=== PATIENT | male | born 1985 | race Caucasian/White ===

== ENCOUNTER 2018-08-09 21:07 | Emergency (ER) | payer BC, OTHER ==
[2018-08-09] MEDS ORDERED: METOCLOPRAMIDE 10 MG/2mL INJ ONE (22:02)
[2018-08-09] MEDS ORDERED: DIPHENHYDRAMINE 50 MG/ML VIAL ONE (22:02)
[2018-08-09] MEDS ORDERED: DEXAMETHASONE 10 MG/ML VIAL ONE (22:02)
[2018-08-09] MEDS ORDERED: ACETAMINOPHEN 500 MG TAB ONE (22:02)
[2018-08-09] MEDS ORDERED: NA CHLORIDE 0.9% 1,000 ML ONE (22:02)
[2018-08-09 22:09] LABS: Absolute Lymphocytes (CBC) 2.4 K/uL (0.7-4.9); Basophils % 0.6 % (0-1.3); Eosinophils % 2.1 % (0-4.4); Hematocrit 46.2 % (39.6-49.0); Lymphocytes % 34.3 % (15.3-44.8); MPV 7.9 fL (7.6-11.3); Monocytes % 8.2 % (3.3-12.3); RBC Red Blood Cell Count 5.22 M/uL (4.33-5.43)
[2018-08-09 22:10] LABS: Protime INR 0.88
[2018-08-09 22:17] LABS: Barbiturates NEGATIVE (NEGATIVE); Benzodiazepines NEGATIVE (NEGATIVE); Cocaine NEGATIVE (NEGATIVE); METHAMPHETAM NEGATIVE (NEGATIVE); Methadone NEGATIVE (NEGATIVE); Opiates NEGATIVE (NEGATIVE); Phencyclidine NEGATIVE (NEGATIVE); THC Cannibis NEGATIVE (NEGATIVE)
[2018-08-09 22:52] LABS: ALT/SGPT 49 U/L (12-78); AST/SGOT 23 U/L (15-37); Alkaline Phosphatase 63 U/L (45-117); BUN Blood Urea Nitrogen 16 mg/dL (7-18); Bicarbonate 29 mmol/L (21-32); Bilirubin Direct < 0.1 mg/dL (0-0.2); Bilirubin Total 0.3 mg/dL (0.2-1.0); Glucose Level 112 mg/dL (74-106); Potassium 4.4 mmol/L (3.5-5.1); Protein, Total 7.6 g/dL (6.4-8.2); Sodium Level 144 mmol/L (136-145)
--- NOTE | 2018-08-10 00:57 | EDPHYS ---
Physician Documentation [facility] [place] Name: Hussain Zee Age: 32 yrs Sex: Male : 1985 Arrival Date: 08/09/2018 Time: 21:10 Bed 8 Private MD: ED Physician Clinton Ewing HPI: 08/09 21:58 This 32 yrs old Male presents to ER via Ambulatory with complaints of wa Dizziness, Eye Pain, Headache. 21:58 The patient presents with dizziness, feeling off balance, c/o generalized JONAS and R eye wa pain. Onset: The symptoms/episode began/occurred today. Context: occurred at home, occurred while the patient was at rest, gradual onset. . just prior to the episode the patient experienced no apparent symptoms. Modifying factors: The symptoms are alleviated by nothing, the symptoms are aggravated by nothing. Associated signs and symptoms: Pertinent positives: headache, R eye pain. dizziness, Pertinent negatives: abdominal pain, ataxia, blurred vision, confusion, focal weakness, palpitations, shortness of breath, syncope, tingling, vomiting. Severity of symptoms: At their worst the symptoms were severe in the emergency department the symptoms are unchanged. Patient's baseline: Neuro: alert and fully oriented, Motor: no deficits, Ambulation: walks without assistance, Speech: normal, The patient has a previous history of none. The patient has experienced a previous episode, approximately 1 months ago, resolved without intervention. did not seek medical attention at the time. The patient has not recently seen a physician. Historical: - Allergies: 21:31 No Known Allergies; aa1 - Home Meds: 21:31 Cyclobenzaprine Oral [Active]; aa1 - PMHx: 21:31 shoulder problem; aa1 - PSHx: 21:31 Tonsillectomy; aa1 - Immunization history:: Flu vaccine is not up to date. - Social history:: Smoking status: Patient uses tobacco products, denies chronic smoking, but will smoke occasionally. - Ebola Screening: : No symptoms or risks identified at this time. - Family history:: not pertinent. - Hospitalizations: : No recent hospitalization is reported. ROS: 22:03 Constitutional: Negative for fever, chills, and weight loss, ENT: Negative for injury, wa pain, and discharge, Neck: Negative for injury, pain, and swelling, Cardiovascular: Negative for chest pain, palpitations, and edema, Respiratory: Negative for shortness of breath, cough, wheezing, and pleuritic chest pain, Abdomen/GI: Negative for abdominal pain, nausea, vomiting, diarrhea, and constipation, Back: Negative for injury and pain, : Negative for injury, bleeding, discharge, and swelling, MS/Extremity: Negative for injury and deformity, Skin: Negative for injury, rash, and discoloration, Psych: Negative for depression, anxiety, suicide ideation, homicidal ideation, and hallucinations. 22:03 Eyes: Positive for pain, of the right eye, Negative for acute changes, blurry vision, tearing, vision loss. 22:03 Neuro: Positive for dizziness, headache, Negative for altered mental status, gait disturbance, seizure activity, speech changes, syncope, visual changes. 22:03 All other systems are negative. Exam: 22:05 Constitutional: This is a well developed, well nourished patient who is awake, alert, wa and in no acute distress. Head/Face: Normocephalic, atraumatic. ENT: Nares patent. No nasal discharge, no septal abnormalities noted. Tympanic membranes are normal and external auditory canals are clear. Oropharynx with no redness, swelling, or masses, exudates, or evidence of obstruction, uvula midline. Mucous membranes moist. Neck: Trachea midline, no thyromegaly or masses palpated, and no cervical lymphadenopathy. Supple, full range of motion without nuchal rigidity, or vertebral point tenderness. No Meningismus. Chest/axilla: Normal chest wall appearance and motion. Nontender with no deformity. No lesions are appreciated. Cardiovascular: Regular rate and rhythm with a normal S1 and S2. No gallops, murmurs, or rubs. Normal PMI, no JVD. No pulse deficits. Respiratory: Lungs have equal breath sounds bilaterally, clear to auscultation and percussion. No rales, rhonchi or wheezes noted. No increased work of breathing, no retractions or nasal flaring. Abdomen/GI: Soft, non-tender, with normal bowel sounds. No distension or tympany. No guarding or rebound. No evidence of tenderness throughout. Back: No spinal tenderness. No costovertebral tenderness. Full range of motion. Skin: Warm, dry with normal turgor. Normal color with no rashes, no lesions, and no evidence of cellulitis. MS/ Extremity: Pulses equal, no cyanosis. Neurovascular intact. Full, normal range of motion. Psych: Awake, alert, with orientation to person, place and time. Behavior, mood, and affect are within normal limits. 22:05 Eyes: Pupils: equal, round, and reactive to light and accomodation, Extraocular movements: intact throughout, Conjunctiva: normal, Anterior chamber: normal. 22:05 Neuro: Orientation: is normal, Mentation: is normal, Memory: is normal, Cranial nerves: grossly normal, Cerebellar function: normal finger to nose testing, heel to johnson testing is normal, able to perform alternating rapid hand movements. Vital Signs: 21:31 BP 141 / 86; Pulse 91; Resp 18; Temp 98.2; Pulse Ox 100% on R/A; Weight 102.06 kg; aa1 Height 5 ft. 10 in. (177.80 cm); Pain 6/10; 22:13 BP 119 / 80; Pulse 75; Resp 21; Pulse Ox 98% on R/A; tl2 23:05 BP 123 / 73; Pulse 64; Resp 18; Pulse Ox 98% on R/A; tl2 08/10 00:39 Pulse 70; Resp 20; Pulse Ox 97% on R/A; tl2 01:12 BP 121 / 80; Pulse 73; Resp 18; Pulse Ox 96% on R/A; Pain 1/10; tl2 08/09 21:31 Body Mass Index 32.28 (102.06 kg, 177.80 cm) aa1 MDM: 08/09 21:27 Patient medically screened. wa 22:06 Differential diagnosis: essentially nml neuro exam. pt with worrisome presentation. wa consider vascular etiology. consider neuro differential such MS. atypical migraine? . Data reviewed: vital signs, nurses notes. 08/10 00:49 Test interpretation: by ED physician or midlevel provider: labs noted nml. CTA brain wa noted WNL. no stenosis, aneurysm or masses. Response to treatment: the patient's symptoms have markedly improved after treatment. ED course: JONAS resolved with ED interventions. pt feels much better. CTA brain negative. will d/c with close f/u with neurologist referral. 08/09 22:02 Order name: Urine Drug Screen; Complete Time: 22:50 EDMS 08/09 22:05 Order name: Basic Metabolic Panel; Complete Time: 23:20 EDMS 08/09 22:05 Order name: Liver (Hepatic) Function; Complete Time: 23:20 EDMS 08/09 22:05 Order name: CBC with Automated Diff; Complete Time: 22:50 EDMS 08/09 22:05 Order name: Sedimentation Rate, Westergren; Complete Time: 22:50 EDMS 08/09 22:05 Order name: Protime (+INR); Complete Time: 22:50 EDMS 08/09 22:12 Order name: Urine Dipstick--Ancillary (enter results); Complete Time: 01:09 cm6 08/09 21:35 Order name: Cardiac monitoring; Complete Time: 22:01 ne 08/09 21:35 Order name: IV Saline Lock; Complete Time: 21:44 ne 08/09 21:35 Order name: Labs collected and sent; Complete Time: :44 ne 08/09 21:35 Order name: NPO; Complete Time: 21:40 ne 08/09 21:35 Order name: O2 Sat Monitoring; Complete Time: 21:39 ne 08/09 23:07 Order name: Head angio EDMS Administered Medications: 08/09 22:02 Drug: Decadron - Dexamethasone 10 mg Route: IVP; Site: right antecubital; tl2 23:00 Follow up: Response: No adverse reaction; Pain is decreased tl2 22:02 Drug: Tylenol 1000 mg Route: PO; tl2 23:00 Follow up: Response: No adverse reaction; Pain is decreased tl2 22:02 Drug: Reglan 5 mg Route: IVP; Site: right antecubital; tl2 23:00 Follow up: Response: No adverse reaction; Pain is decreased tl2 22:02 Drug: Benadryl 12.5 mg Route: IVP; Site: right antecubital; tl2 23:00 Follow up: Response: No adverse reaction; Pain is decreased tl2 22:02 Drug: NS 0.9% 1000 ml Route: IV; Rate: 1 bolus; Site: right antecubital; tl2 23:00 Follow up: IV Status: Completed infusion; IV Intake: 1000ml tl2 08/10 01:07 CANCELLED (IV previously removed): Ketorolac 30 mg IVP once tl2 Disposition: 08/10/18 00:52 Discharged to Home. Impression: Acute Headache, Acute Dizziness. - Condition is Stable. - Discharge Instructions: General Headache Without Cause, [id number], Dizziness, [id number]. - Prescriptions for ketorolac 10 mg Oral tablet - take 1 tablet by ORAL route every 8 hours not to exceed 40 mg in 24hrs; 20 tablet. Compazine 10 mg Oral Tablet - take 1 tablet by ORAL route every 8 hours As needed; 20 tablet. - Work release form, Medication Reconciliation Form, Thank You Letter, Antibiotic Education, Prescription Opioid Use form. - Follow up: Mario Lew MD; When: 1 - 2 days; Reason: Recheck today's complaints. - Problem is new. - Symptoms have improved. - Notes: take the medication prescribed as needed if pain. see the neurogist next available day for further evaluation of your symptoms. Signatures: Dispatcher [employer] EDMS Sandra Vines RN RN aa1 Dory Hernandez RN RN tl2 Clinton Ewing MD MD ne Corrections: (The following items were deleted from the chart) 01:01 00:41 CBC+H.LAB.BRZ ordered. EDMS EDMS 01:01 00:41 PROTIME (+INR)+COAG.LAB.BRZ ordered. EDMS EDMS 01:01 00:41 WESTERGREN SEDRATE+H.LAB.BRZ ordered. EDMS EDMS 01:02 00:41 URINE DRUG SCREEN+CHEM UR.LAB.BRZ ordered. EDMS EDMS 01:02 00:41 BASIC METABOLIC PANEL+C.LAB.BRZ ordered. EDMS EDMS 01:02 00:41 HEPATIC FUNCTION+C.LAB.BRZ ordered. EDMS EDMS 01:07 01:00 Toradol [Ketorolac 30 mg IVP once] ordered. wa tl2 01:13 00:52 08/10/2018 00:52 Discharged to Home. Impression: Acute Headache; Acute Dizziness. tl2 Condition is Stable. Forms are Medication Reconciliation Form, Thank You Letter, Antibiotic Education, Prescription Opioid Use. Follow up: Mario Lew; When: 1 - 2 days; Reason: Recheck today's complaints. Problem is new. Symptoms have improved. wa
--- NOTE | 2018-08-10 00:57 | ER ---
Nurse's Notes [facility] [place] Name: Hussain Zee Age: 32 yrs Sex: Male : 1985 Arrival Date: 08/09/2018 Time: 21:10 Bed 8 Private MD: Diagnosis: Acute Headache;Acute Dizziness Presentation: 08/09 21:21 Presenting complaint: Patient states: dizziness x 2 weeks and pain behind R eye x 4 aa1 hrs. Transition of care: patient was not received from another setting of care. Mechanism of Injury: No Mechanism of Injury. The patient denies any loss of vision. Onset of symptoms was July 25, 2018. Risk Assessment: Do you want to hurt yourself or someone else? Patient reports no desire to harm self or others. Initial Sepsis Screen: Does the patient meet any 2 criteria? No. Patient's initial sepsis screen is negative. Does the patient have a suspected source of infection? No. Patient's initial sepsis screen is negative. Care prior to arrival: None. 21:21 Method Of Arrival: Ambulatory aa1 21:21 Acuity: ESTEBAN 3 aa1 Triage Assessment: 21:31 General: Appears in no apparent distress. comfortable, Behavior is calm, cooperative, aa1 appropriate for age. Historical: - Allergies: 21:31 No Known Allergies; aa1 - Home Meds: 21:31 Cyclobenzaprine Oral [Active]; aa1 - PMHx: 21:31 shoulder problem; aa1 - PSHx: 21:31 Tonsillectomy; aa1 - Immunization history:: Flu vaccine is not up to date. - Social history:: Smoking status: Patient uses tobacco products, denies chronic smoking, but will smoke occasionally. - Ebola Screening: : No symptoms or risks identified at this time. - Family history:: not pertinent. - Hospitalizations: : No recent hospitalization is reported. Screenin:15 Abuse screen: Denies threats or abuse. Nutritional screening: No deficits noted. tl2 Tuberculosis screening: No symptoms or risk factors identified. Fall Risk None identified. Assessment: 21:40 General: Appears in no apparent distress. uncomfortable, Behavior is calm, cooperative, tl2 appropriate for age. Pain: Complains of pain in pressure behind eyes. Neuro: Level of Consciousness is awake, alert, obeys commands, Oriented to person, place, time, situation, Reports dizziness, headache. Cardiovascular: Denies chest pain. Respiratory: Airway is patent Respiratory effort is even, unlabored, Respiratory pattern is regular, symmetrical. GI: Reports intolerance of fluids. : No signs and/or symptoms were reported regarding the genitourinary system. EENT: Derm: Skin is pink, warm \T\ dry. 22:15 Reassessment: Patient appears in no apparent distress at this time. Patient and/or tl2 family updated on plan of care and expected duration. Pain level reassessed. Patient is alert, oriented x 3, equal unlabored respirations, skin warm/dry/pink. 23:35 Reassessment: pt appears to be sleeping, RR even and unlabored. Awaiting further orders.tl2 Vital Signs: 21:31 BP 141 / 86; Pulse 91; Resp 18; Temp 98.2; Pulse Ox 100% on R/A; Weight 102.06 kg; aa1 Height 5 ft. 10 in. (177.80 cm); Pain 6/10; 22:13 BP 119 / 80; Pulse 75; Resp 21; Pulse Ox 98% on R/A; tl2 23:05 BP 123 / 73; Pulse 64; Resp 18; Pulse Ox 98% on R/A; tl2 08/10 00:39 Pulse 70; Resp 20; Pulse Ox 97% on R/A; tl2 01:12 BP 121 / 80; Pulse 73; Resp 18; Pulse Ox 96% on R/A; Pain 1/10; tl2 08/09 21:31 Body Mass Index 32.28 (102.06 kg, 177.80 cm) aa1 ED Course: 08/09 21:10 Patient arrived in ED. do 21:26 Triage completed. aa1 21:27 Clinton Ewing MD is Attending Physician. wa 21:31 Arm band placed on right wrist. aa1 21:39 Dory Hernandez, DONNA is Primary Nurse. tl2 21:42 Inserted saline lock: 20 gauge in right antecubital area, using aseptic technique. jb5 Blood collected. 22:16 Patient has correct armband on for positive identification. Placed in gown. Bed in low tl2 position. Call light in reach. Side rails up X 1. 08/10 00:12 Head angio In Process Unspecified. EDMS 00:51 Mario Lew MD is Referral Physician. wa 01:12 No provider procedures requiring assistance completed. IV discontinued, intact, tl2 bleeding controlled, No redness/swelling at site. Pressure dressing applied. Administered Medications: 08/09 22:02 Drug: Decadron - Dexamethasone 10 mg Route: IVP; Site: right antecubital; tl2 23:00 Follow up: Response: No adverse reaction; Pain is decreased tl2 22:02 Drug: Tylenol 1000 mg Route: PO; tl2 23:00 Follow up: Response: No adverse reaction; Pain is decreased tl2 22:02 Drug: Reglan 5 mg Route: IVP; Site: right antecubital; tl2 23:00 Follow up: Response: No adverse reaction; Pain is decreased tl2 22:02 Drug: Benadryl 12.5 mg Route: IVP; Site: right antecubital; tl2 23:00 Follow up: Response: No adverse reaction; Pain is decreased tl2 22:02 Drug: NS 0.9% 1000 ml Route: IV; Rate: 1 bolus; Site: right antecubital; tl2 23:00 Follow up: IV Status: Completed infusion; IV Intake: 1000ml tl2 08/10 01:07 CANCELLED (IV previously removed): Ketorolac 30 mg IVP once tl2 Intake: 08/09 23:00 IV: 1000ml; Total: 1000ml. tl2 Outcome: 08/10 00:52 Discharge ordered by . 01:12 Discharged to home ambulatory. tl2 01:12 Condition: stable 01:12 Discharge instructions given to patient, Instructed on discharge instructions, follow up and referral plans. medication usage, Demonstrated understanding of instructions, follow-up care, medications, Prescriptions given X 2. 01:13 Patient left the ED. tl2 Signatures: Dispatcher [employer] EDMS Sandra Vines RN RN aa1 Noelle Mike Taylor, RN RN tl2 Ana Jamison [id number] Clinton Ewing MD MD ma Corrections: (The following items were deleted from the chart) 08/09 22:15 22:13 Pulse 75bpm; Resp 21bpm; Pulse Ox 98% RA; tl2 tl2
[2018-08-10 01:04] LABS: Urine Blood NEGATIVE (NEG); Urine Glucose NEGATIVE (NEG); Urine Protein NEGATIVE (NEG); Urine Specific Gravity 1.015 (1.005-1.030)
[2018-08-10] MEDS ORDERED: KETOROLAC 30 MG/ML INJ ONE (01:16)
--- NOTE | 2018-08-10 10:56 | RAD REPORT ---
EXAM DESCRIPTION: Head angio CLINICAL HISTORY: Headache, R eye pain, dizziness COMPARISON: None. TECHNIQUE: CT HEAD ANGIOGRAPHY WITH IV CONTRAST on 08/09/2018 11:05 PM CDT This exam was performed according to our departmental dose-optimization program, which includes autom ated exposure control, adjustment of the mA and/or kV according to patient size and/or use of iterati ve reconstruction technique. MIP reconstructions were generated. Stenoses are calculated by NASCET criteria. FINDINGS: Bilateral vertebral basilar system is unremarkable. The bilateral posterior cerebral arter ies are patent. Distal internal carotid arteries are patent. The bilateral anterior and middle cerebr al arteries are patent. IMPRESSION: No aneurysm, stenosis or vessel occlusion. CAROTID STENOSIS REFERENCE USING NASCET CRITERIA: % ICA stenosis = (1 - narrowest ICA diameter/diameter of distal cervical ICA) x 100. Mild - Moderate - 50-69% stenosis. Severe - 70-94% stenosis. Near occlusion - 95-99% stenosis. Occluded - 100% stenosis. Electronically signed by: Rajesh Sharp MD 08/10/2018 12:24 AM CDT Due to temporary technical issues with the PACS/Fluency reporting system, reports are being signed by the in house radiologist as a courtesy to ensure prompt reporting. The interpreting radiologist is f ully responsible for the content of the report.
== END 2018-08-10 01:13 | disposition home or self-care (01) ==
LOC: ER 21:07
DX: R51 Headache (principal); Z72.0 Tobacco use
CPT/HCPCS: 36415; 70496; 80048; 80076; 80307; 81003; 85025; 85610; 85652; 96361; 96374; 96375; 99284; J1100; J2765; J7030; Q9967

== ENCOUNTER 2019-08-21 05:06 | Emergency (ER) | payer OTHER ==
[2019-08-21] MEDS ORDERED: KETOROLAC 30 MG/ML INJ ONE (05:52)
--- NOTE | 2019-08-21 06:19 | EDPHYS ---
Physician Documentation [facility] [place] Name: Hussain Zee Age: 33 yrs Sex: Male : 1985 Arrival Date: 08/21/2019 Time: 05:11 Bed 8 Private MD: PETRA Physician Lencho Pinto HPI: 08/20 06:14 This 33 yrs old Male presents to ER via Ambulatory with complaints of Back tw4 Pain. 06:14 The patient presents with pain and is running out of pain medications, soma. The tw4 symptoms are located in the low back. Onset: The symptoms/episode began/occurred 1 month(s) ago. The pain does not radiate. Associated signs and symptoms: The patient has no apparent associated signs or symptoms. The problem was sustained from a chronic condition, degenerative joint disease, the patient has known disc disease. Modifying factors: The patient symptoms are alleviated by remaining still, the patient symptoms are aggravated by any movement, running out of pain medications, soma. The patient has experienced similar episodes in the past, chronically. Historical: - Allergies: 05:24 No Known Allergies; rv - PMHx: 05:24 shoulder problem; HERNIATED DISC C5-C6; rv - PSHx: 05:24 Tonsillectomy; rv - Immunization history:: Adult Immunizations up to date. - Social history:: Smoking status: Patient reports the use of cigarette tobacco products, smokes one-half pack cigarettes per day. ROS: 06:14 Constitutional: Negative for fever, chills, and weight loss, Eyes: Negative for injury, tw4 pain, redness, and discharge, Cardiovascular: Negative for chest pain, palpitations, and edema, Respiratory: Negative for shortness of breath, cough, wheezing, and pleuritic chest pain, Abdomen/GI: Negative for abdominal pain, nausea, vomiting, diarrhea, and constipation, MS/Extremity: Negative for injury and deformity, Skin: Negative for injury, rash, and discoloration, Neuro: Negative for headache, weakness, numbness, tingling, and seizure. 06:14 Back: Positive for decreased range of motion, pain at rest, pain with movement. Exam: 06:14 Head/Face: Normocephalic, atraumatic. tw4 06:14 Cardiovascular: Regular rate and rhythm with a normal S1 and S2. No gallops, murmurs, or rubs. Normal PMI, no JVD. No pulse deficits. Respiratory: Lungs have equal breath sounds bilaterally, clear to auscultation and percussion. No rales, rhonchi or wheezes noted. No increased work of breathing, no retractions or nasal flaring. Abdomen/GI: Soft, non-tender, with normal bowel sounds. No distension or tympany. No guarding or rebound. No evidence of tenderness throughout. 06:14 Skin: Warm, dry with normal turgor. Normal color with no rashes, no lesions, and no evidence of cellulitis. MS/ Extremity: Pulses equal, no cyanosis. Neurovascular intact. Full, normal range of motion. 06:14 Constitutional: The patient appears in obvious distress, mildly distressed. 06:14 Back: pain, that is moderate, ROM is painful. 06:14 Back: pain, of the left low back and right low back, normal spinal alignment noted, Straight leg raises: right lower extremity illicits pain, at 45 degrees, left lower extremity illicits pain, at 45 degrees. Vital Signs: 05:21 BP 118 / 75; Pulse 70; Resp 17; Temp 97.9; Pulse Ox 99% ; Weight 92.99 kg; Height 5 ft. rv 10 in. (177.80 cm); Pain 9/10; 06:23 BP 113 / 78; Pulse 71; Resp 17; Temp 98; Pulse Ox 99% on R/A; rv 05:21 Body Mass Index 29.41 (92.99 kg, 177.80 cm) rv MDM: 05:24 Patient medically screened. tw4 06:14 Differential diagnosis: chronic back pain, Fatigue Joint Injury Ligament Injury. Data tw4 reviewed: vital signs, nurses notes. Counseling: I had a detailed discussion with the patient and/or guardian regarding: the historical points, exam findings, and any diagnostic results supporting the discharge/admit diagnosis. Medication response: Toradol partially relieved the patient's pain. Response to treatment: and as a result, I will discharge patient. Special discussion: I discussed with the patient/guardian in detail that at this point there is no indication for admission to the hospital. It is understood, however, that if the symptoms persist or worsen the patient needs to return immediately for re-evaluation. Administered Medications: 05:45 Drug: TORadol 60 mg {Note: given by ranjeet THOMPSON.} Route: IM; Site: right deltoid; rr5 06:14 Follow up: Response: No adverse reaction rv 06:15 Follow up: Response: Pain is unchanged, physician notified rv 06:21 Drug: predniSONE 60 mg Route: PO; rv 06:21 Follow up: Response: Medication administered at discharge. rv Disposition: 08/21/19 06:19 Discharged to Home. Impression: Chronic pain, not elsewhere classified, Low back pain, Sprain of ligaments of lumbar spine. - Condition is Stable. - Discharge Instructions: Back Pain, Adult, Chronic Back Pain, Musculoskeletal Pain. - Prescriptions for Ibuprofen 800 mg Oral Tablet - take 1 tablet by ORAL route every 8 hours As needed take with food; 30 tablet. Cyclobenzaprine 10 mg Oral Tablet - take 1 tablet by ORAL route every 8 hours As needed; 30 tablet. Tramadol 50 mg Oral Tablet - take 1 tablet by ORAL route every 8 hours as needed; 12 tablet. Medrol (Rolando) 4 mg Oral Tablets, Dose Pack - take 1 tablet by ORAL route as directed - follow package instructions; 1 packet. - Medication Reconciliation Form, Thank You Letter, Antibiotic Education, Prescription Opioid Use form. - Follow up: Private Physician; When: Upon discharge from the Emergency Department; Reason: Recheck today's complaints, Continuance of care, Re-evaluation by your physician. - Problem is new. - Symptoms have improved. Signatures: Lencho Pinto MD MD tw4 Jeromy Chamorro RN RN rv Ivan Webb RN RN rr5 Corrections: (The following items were deleted from the chart) 06:25 06:19 08/21/2019 06:19 Discharged to Home. Impression: Chronic pain, not elsewhere rv classified; Low back pain; Sprain of ligaments of lumbar spine. Condition is Stable. Forms are Medication Reconciliation Form, Thank You Letter, Antibiotic Education, Prescription Opioid Use. Follow up: Private Physician; When: Upon discharge from the Emergency Department; Reason: Recheck today's complaints, Continuance of care, Re-evaluation by your physician. Problem is new. Symptoms have improved. tw4
--- NOTE | 2019-08-21 06:19 | ER ---
Nurse's Notes [facility] Sof[place] Name: Hussain Zee Age: 33 yrs Sex: Male : 1985 Arrival Date: 08/21/2019 Time: 05:11 Bed 8 Private MD: Diagnosis: Chronic pain, not elsewhere classified;Low back pain;Sprain of ligaments of lumbar spine Presentation: 08/20 05:21 Chief complaint: Patient states: WITH HISTORY OF HERNIATED DISC, C5-C6. PAIN GOT WORSE rv AFTER TURNING HEAD TO LEFT. DESCRIBED SHARP PAIN, 9/10. ACCOMPANIED BY HEADACHE. Coronavirus screen: Proceed with normal triage. Ebola Screen: No symptoms or risks identified at this time. Initial Sepsis Screen: Does the patient meet any 2 criteria? No. Patient's initial sepsis screen is negative. Does the patient have a suspected source of infection? No. Patient's initial sepsis screen is negative. Risk Assessment: Do you want to hurt yourself or someone else? Patient reports no desire to harm self or others. Onset of symptoms was August 21, 2019 at 02:00. 05:21 Method Of Arrival: Ambulatory rv 05:21 Acuity: ESTEBAN 3 rv Triage Assessment: 05:24 General: Appears uncomfortable, Behavior is calm, cooperative. Pain: Complains of pain rv in back Pain currently is 9 out of 10 on a pain scale. Quality of pain is described as sharp. Pain: Also complains of HEADACHE. Neuro: Level of Consciousness is awake, alert, obeys commands, Oriented to person, place, time, situation. Cardiovascular: Patient's skin is warm and dry. Respiratory: Airway is patent Respiratory effort is even, unlabored, Respiratory pattern is regular, symmetrical, Breath sounds are clear bilaterally. Musculoskeletal: Circulation, motion, and sensation intact. Reports pain in back Pain is 9 out of 10 on a pain scale. Historical: - Allergies: 05:24 No Known Allergies; rv - PMHx: 05:24 shoulder problem; HERNIATED DISC C5-C6; rv - PSHx: 05:24 Tonsillectomy; rv - Immunization history:: Adult Immunizations up to date. - Social history:: Smoking status: Patient reports the use of cigarette tobacco products, smokes one-half pack cigarettes per day. Screenin:25 Abuse screen: Denies threats or abuse. Denies injuries from another. Nutritional rv screening: No deficits noted. Tuberculosis screening: No symptoms or risk factors identified. Fall Risk None identified. Assessment: 06:24 Reassessment: PAIN IS UNCHANGED. PATIENT CAME IN THE ER ALONE. UNABLE TO GIVE OPIOIDS. rv INSTRUCTIONS GIVEN TO PATIENT, UNDERSTOOD AND DISCHARGED. Neuro: Level of Consciousness is awake, alert, obeys commands, Oriented to person, place, time, situation. Vital Signs: 05:21 BP 118 / 75; Pulse 70; Resp 17; Temp 97.9; Pulse Ox 99% ; Weight 92.99 kg; Height 5 ft. rv 10 in. (177.80 cm); Pain 9/10; 06:23 BP 113 / 78; Pulse 71; Resp 17; Temp 98; Pulse Ox 99% on R/A; rv 05:21 Body Mass Index 29.41 (92.99 kg, 177.80 cm) rv ED Course: 05:11 Patient arrived in ED. ag3 05:17 Jeromy Chamorro, DONNA is Primary Nurse. rv 05:23 Triage completed. rv 05:24 Lencho Pinto MD is Attending Physician. tw4 05:25 Arm band placed on Patient placed in the treatment room, on a stretcher, Patient rv notified of wait time. 05:26 Patient has correct armband on for positive identification. Bed in low position. Call rv light in reach. Side rails up X 1. Pulse ox on. NIBP on. 06:25 No provider procedures requiring assistance completed. Patient did not have IV access rv during this emergency room visit. Administered Medications: 05:45 Drug: TORadol 60 mg {Note: given by ranjeet THOMPSON.} Route: IM; Site: right deltoid; rr5 06:14 Follow up: Response: No adverse reaction rv 06:15 Follow up: Response: Pain is unchanged, physician notified rv 06:21 Drug: predniSONE 60 mg Route: PO; rv 06:21 Follow up: Response: Medication administered at discharge. rv Outcome: 06:19 Discharge ordered by . tw4 06:25 Discharged to home ambulatory. rv 06:25 Condition: unchanged 06:25 Discharge instructions given to patient, Instructed on discharge instructions, follow up and referral plans. medication usage, Demonstrated understanding of instructions, follow-up care, medications, Prescriptions given X 4. 06:25 Patient left the ED. rv Signatures: Lencho Pinto MD MD tw4 Jeromy Chamorro, RN RN rv Trudi Owen ag3 Ivan Webb RN RN rr5
[2019-08-21] MEDS ORDERED: predniSONE 20 MG TAB ONE (06:25)
[2019-08-21 06:31] VITALS: O2SAT 99
[2019-08-21 06:33] VITALS: BP 113/78; TEMP 98
== END 2019-08-21 06:25 | disposition home or self-care (01) ==
LOC: ER 05:06
DX: S33.5XXA Sprain of ligaments of lumbar spine, initial encounter (principal); G89.29 Other chronic pain; F17.210 Nicotine dependence, cigarettes, uncomplicated
CPT/HCPCS: 96372; 99283; J7512

== ENCOUNTER 2020-12-05 17:13 | Emergency (ER) | payer OTHER ==
[2020-12-05 18:00] LABS: Urine Blood Negative (Negative); Urine Glucose Negative (Negative); Urine Protein Negative (Negative)
[2020-12-05] MEDS ORDERED: ONDANSETRON 4 MG/2 ML VIAL ONE (20:14)
[2020-12-05] MEDS ORDERED: NA CHLORIDE 0.9% 1,000 ML ONE (20:14)
[2020-12-05] MEDS ORDERED: MORPHINE 4 MG/ML SYR ONE (20:14)
[2020-12-05 20:39] LABS: Absolute Lymphocytes (CBC) 2.3 K/uL (0.7-4.9); Basophils % 0.6 % (0-1.3); Lymphocytes % 32.1 % (15.3-44.8); MPV 7.5 fL (7.6-11.3); RBC Red Blood Cell Count 5.16 M/uL (4.33-5.43)
[2020-12-05 20:55] LABS: ALT/SGPT 28 U/L (12-78); AST/SGOT 9 U/L (15-37); Albumin 4.1 g/dL (3.4-5.0); Alkaline Phosphatase 55 U/L (45-117); BUN Blood Urea Nitrogen 12 mg/dL (7-18); Bicarbonate 27 mmol/L (21-32); Bilirubin Direct < 0.1 mg/dL (0-0.2); Bilirubin Total 0.4 mg/dL (0.2-1.0); Glucose Level 98 mg/dL (74-106); Lipase 76 U/L (73-393); Potassium 3.9 mmol/L (3.5-5.1); Protein, Total 7.2 g/dL (6.4-8.2); Sodium Level 142 mmol/L (136-145)
--- NOTE | 2020-12-05 21:40 | RAD REPORT ---
EXAM DESCRIPTION: CT - Abdomen Pelvis W Contrast - 12/05/2020 9:19 pm CLINICAL HISTORY: Abdominal pain COMPARISON: 2009 TECHNIQUE: Computed axial tomography of the abdomen pelvis was obtained. 100 cc Isovue-300 was admin istered intravenously. Oral contrast was not requested which limits evaluation of bowel. All CT scans are performed using dose optimization technique as appropriate and may include automated exposure control or mA/KV adjustment according to patient size. FINDINGS: The liver, spleen, pancreas, adrenal and right kidney appear unremarkable. 2 millimeter calculus left kidney. Additional 1 millimeter calculus left kidney No hydronephrosis. There is no evidence of diverticulitis. Fluid within nondilated small bowel Normal appendix. Small umbilical hernia IMPRESSION: Small nonobstructing left renal calculi Fluid within nondilated small bowel is nonspecific but may indicate an enteritis
--- NOTE | 2020-12-05 23:06 | ER ---
Nurse's Notes [facility] Ashish Name: Hussain Zee Age: 35 yrs Sex: Male : 1985 Arrival Date: 12/05/2020 Time: 17:15 Bed 11 Private MD: Padma Grimm C Diagnosis: Lower abdominal pain, unspecified;Calculus of kidney Presentation: 12/05 17:48 Chief complaint: Patient states: ABD pain and pelvic pain began this morning. Pt states vg1 lower back pain and pain is relieved after urination. States having frequent BM today, denies NVD. Coronavirus screen: Vaccine status: Patient reports receiving the 2nd dose of the covid vaccine. Client denies travel out of the [place] in the last 14 days. Ebola Screen: Patient negative for fever greater than or equal to 101.5 degrees Fahrenheit, and additional compatible Ebola Virus Disease symptoms. Initial Sepsis Screen: Does the patient meet any 2 criteria? No. Patient's initial sepsis screen is negative. Does the patient have a suspected source of infection? No. Patient's initial sepsis screen is negative. Risk Assessment: Do you want to hurt yourself or someone else? Patient reports no desire to harm self or others. Onset of symptoms was December 05, 2020. 17:48 Method Of Arrival: Ambulatory vg1 17:48 Acuity: ESTEBAN 3 vg1 Triage Assessment: 17:50 General: Appears in no apparent distress. uncomfortable, Behavior is calm, cooperative. vg1 Pain:. GI: Abdomen is flat, non-distended. Historical: - Allergies: 17:50 No Known Allergies; vg1 - Home Meds: 17:50 Cyclobenzaprine Oral [Active]; Trintellix oral [Active]; [place] Carbonate Oral vg1 [Active]; Clonazepam Oral [Active]; - PMHx: 17:50 HERNIATED DISC C5-C6; shoulder problem; Anxiety; Depressive disorder; Bipolar disorder; vg1 - Immunization history:: Adult Immunizations up to date, Client reports receiving the 2nd dose of the Covid vaccine. - Social history:: Smoking status: Patient reports the use of cigarette tobacco products, smokes one pack cigarettes per day. Screenin:13 Abuse screen: Denies threats or abuse. Denies injuries from another. Nutritional ld1 screening: No deficits noted. Tuberculosis screening: No symptoms or risk factors identified. Fall Risk None identified. Assessment: 23:13 GI: ld1 23:13 GI: ld1 Vital Signs: 17:48 BP 137 / 92; Pulse 85; Resp 18; Temp 97.1; Pulse Ox 98% ; Weight 97.07 kg; Height 5 ft. vg1 10 in. (177.80 cm); Pain 6/10; 17:48 Body Mass Index 30.71 (97.07 kg, 177.80 cm) vg1 ED Course: 17:15 Patient arrived in ED. as 17:16 Padma Grimm MD is Private Physician. as 17:50 Triage completed. vg1 17:50 Arm band placed on. vg1 19:23 Clement Bedolla MD is Attending Physician. 7 19:50 Richard Shepard RN is Primary Nurse. mr2 20:04 Basic Metabolic Panel Sent. mr2 20:04 CBC with Diff Sent. mr2 20:04 Hepatic Function Sent. mr2 20:04 Lipase Sent. mr2 20:04 No provider procedures requiring assistance completed. Inserted saline lock: 20 gauge mr2 in left antecubital area, using aseptic technique. 21:19 CT Abd/Pelvis - IV Contrast Only In Process Unspecified. EDMS 23:04 Edgar Vera MD is Referral Physician. [facility] 23:13 IV discontinued, intact, bleeding controlled, No redness/swelling at site. ld1 Administered Medications: 20:03 Drug: NS 0.9% 1000 ml Route: IV; Rate: 1000 ml; Site: left antecubital; mr2 20:03 Drug: morphine 4 mg Route: IVP; Site: left antecubital; mr2 20:03 Drug: Zofran (Ondansetron) 4 mg Route: IVP; Site: left antecubital; mr2 Outcome: 23:05 Discharge ordered by . 7 23:13 Discharged to home ambulatory. ld1 23:13 Condition: stable 23:13 Discharge instructions given to patient, Instructed on discharge instructions, follow up and referral plans. medication usage, Demonstrated understanding of instructions, follow-up care, medications, Prescriptions given X 1. 23:14 Patient left the ED. ld1 Signatures: Dispatcher [employer] EDMS Waleska Vu Victoria, RN RN 1 Clement Bedolla MD MD 7 Vanesa Caal, RN RN ld1 Richard Shepard, DONNA RN mr2
--- NOTE | 2020-12-05 23:06 | EDPHYS ---
Physician Documentation [facility] Name: Hussain Zee Age: 35 yrs Sex: Male : 1985 Arrival Date: 12/05/2020 Time: 17:15 Bed 11 Private MD: Padma Grimm C ED Physician Clement Bedolla HPI: 12/05 19:35 This 35 yrs old Male presents to ER via Ambulatory with complaints of mh7 Abdominal Pain, Pelvic Pain. 19:35 The patient presents with abdominal pain in the lower abdomen. Onset: The mh7 symptoms/episode began/occurred this morning. The symptoms radiate to the left flank. 19:35 Associated signs and symptoms: Pertinent positives: Urinary frequency, Pertinent mh7 negatives: nausea, vomiting, and diarrhea, anorexia, blood in stools, chest pain, constipation, diarrhea, dysuria, fever, headache, hematuria, palpitations, shortness of breath, testicular pain, vomiting, vomiting blood. 19:35 The symptoms are described as intermittent, vague, waxing/waning. Modifying factors: mh7 The symptoms are alleviated by nothing, the symptoms are aggravated by movement, touching the area. Severity of pain: At its worst the pain was moderate today, in the emergency department the pain is unchanged. Historical: - Allergies: 17:50 No Known Allergies; vg1 - Home Meds: 17:50 Cyclobenzaprine Oral [Active]; Trintellix oral [Active]; [place] Carbonate Oral vg1 [Active]; Clonazepam Oral [Active]; - PMHx: 17:50 HERNIATED DISC C5-C6; shoulder problem; Anxiety; Depressive disorder; Bipolar disorder; vg1 - Immunization history:: Adult Immunizations up to date, Client reports receiving the 2nd dose of the Covid vaccine. - Social history:: Smoking status: Patient reports the use of cigarette tobacco products, smokes one pack cigarettes per day. ROS: 19:35 Constitutional: Negative for fever, chills, and weight loss, Eyes: Negative for injury, mh7 pain, redness, and discharge, ENT: Negative for injury, pain, and discharge, Neck: Negative for injury, pain, and swelling, Cardiovascular: Negative for chest pain, palpitations, and edema, Respiratory: Negative for shortness of breath, cough, wheezing, and pleuritic chest pain, MS/Extremity: Negative for injury and deformity, Skin: Negative for injury, rash, and discoloration, Neuro: Negative for headache, weakness, numbness, tingling, and seizure, Psych: Negative for depression, anxiety, suicide ideation, homicidal ideation, and hallucinations, Allergy/Immunology: Negative for hives, rash, and allergies, Endocrine: Negative for neck swelling, polydipsia, polyuria, polyphagia, and marked weight changes, Hematologic/Lymphatic: Negative for swollen nodes, abnormal bleeding, and unusual bruising. Exam: 19:35 Constitutional: This is a well developed, well nourished patient who is awake, alert, mh7 and in no acute distress. Head/Face: Normocephalic, atraumatic. Eyes: Pupils equal round and reactive to light, extra-ocular motions intact. Lids and lashes normal. Conjunctiva and sclera are non-icteric and not injected. Cornea within normal limits. Periorbital areas with no swelling, redness, or edema. Neck: Trachea midline, no thyromegaly or masses palpated, and no cervical lymphadenopathy. Supple, full range of motion without nuchal rigidity, or vertebral point tenderness. No Meningismus. Chest/axilla: Normal chest wall appearance and motion. Nontender with no deformity. No lesions are appreciated. Cardiovascular: Regular rate and rhythm with a normal S1 and S2. No gallops, murmurs, or rubs. Normal PMI, no JVD. No pulse deficits. Respiratory: Lungs have equal breath sounds bilaterally, clear to auscultation and percussion. No rales, rhonchi or wheezes noted. No increased work of breathing, no retractions or nasal flaring. 19:35 Skin: Warm, dry with normal turgor. Normal color with no rashes, no lesions, and no evidence of cellulitis. MS/ Extremity: Pulses equal, no cyanosis. Neurovascular intact. Full, normal range of motion. Neuro: Awake and alert, GCS 15, oriented to person, place, time, and situation. Cranial nerves II-XII grossly intact. Motor strength 5/5 in all extremities. Sensory grossly intact. Cerebellar exam normal. Normal gait. Psych: Awake, alert, with orientation to person, place and time. Behavior, mood, and affect are within normal limits. 19:35 Abdomen/GI: Inspection: abdomen appears normal, Bowel sounds: normal, in all quadrants, Palpation: moderate abdominal tenderness, in the left lower quadrant, mass, is not appreciated, rebound tenderness, is not appreciated, voluntary guarding, is not appreciated, involuntary guarding, is not appreciated, no appreciated organomegaly, Rectal exam: the exam is deferred, because of patient request, Indicators: McBurney's point is not tender, Crouch's sign is negative, Rovsing's sign is negative, Obturator sign is negative, Psoas sign is negative, Liver: no appreciated palpable abnormalities, Hernia: not appreciated. 19:35 Back: normal spinal alignment noted, CVA tenderness, that is moderate, is noted on the left, muscle spasm, is not present. Vital Signs: 17:48 BP 137 / 92; Pulse 85; Resp 18; Temp 97.1; Pulse Ox 98% ; Weight 97.07 kg; Height 5 ft. vg1 10 in. (177.80 cm); Pain 6/10; 17:48 Body Mass Index 30.71 (97.07 kg, 177.80 cm) vg1 MDM: 23:03 Differential diagnosis: appendicitis, bowel obstruction, diverticulitis, non-specific mh7 abd pain, Pyelonephritis, Ureterolithiasis, urinary tract infection. Data reviewed: vital signs, nurses notes, lab test result(s), CBC, electrolytes, urinalysis, radiologic studies, CT scan. Data interpreted: Pulse oximetry: on room air is 98 %. Interpretation: normal. Counseling: I had a detailed discussion with the patient and/or guardian regarding: the historical points, exam findings, and any diagnostic results supporting the discharge/admit diagnosis, the presence of at least one elevated blood pressure reading (>120/80) during this emergency department visit, lab results, radiology results, the need for outpatient follow up, a urologist, to return to the emergency department if symptoms worsen or persist or if there are any questions or concerns that arise at home. Response to treatment: the patient's symptoms have resolved after treatment, the patient's blood pressure is in an acceptable range, mental status has returned to baseline, the patient no longer shows bradycardia, the patient is not short of breath, the patient is not tachycardic, the patient's pain is gone, the patient's temperature has normalized. 23:05 Patient medically screened. 7 12/05 18:01 Order name: Urine Dipstick-Ancillary; Complete Time: 18:16 EDMS 12/05 18:16 Order name: Basic Metabolic Panel; Complete Time: 21:35 ma2 12/05 18:16 Order name: CBC with Diff; Complete Time: 21:35 ma2 12/05 18:16 Order name: Hepatic Function; Complete Time: 21:35 ma2 12/05 18:16 Order name: Lipase; Complete Time: 21:35 ma2 12/05 18:16 Order name: CT Abd/Pelvis - IV Contrast Only; Complete Time: 22:34 ma2 12/05 17:59 Order name: Urine Dipstick-Ancillary (obtain specimen); Complete Time: 17:59 ll1 12/05 18:16 Order name: IV Saline Lock; Complete Time: 20:04 ma2 12/05 18:16 Order name: Labs collected and sent; Complete Time: 20:04 ma2 Administered Medications: 20:03 Drug: NS 0.9% 1000 ml Route: IV; Rate: 1000 ml; Site: left antecubital; mr2 20:03 Drug: morphine 4 mg Route: IVP; Site: left antecubital; mr2 20:03 Drug: Zofran (Ondansetron) 4 mg Route: IVP; Site: left antecubital; mr2 Disposition Summary: 12/05/20 23:05 Discharge Ordered Location: Home [facility] Problem: new [facility] Symptoms: have improved [facility] Condition: Stable [facility] Diagnosis - Lower abdominal pain, unspecified 7 - Calculus of kidney [facility] Followup: [facility] - With: Private Physician - When: 1 - 2 days - Reason: Worsening of condition, Recheck today's complaints, Continuance of care, Re-evaluation by your physician Followup: [facility] - With: dEgar Vera MD - When: 2 - 3 days - Reason: Worsening of condition, Recheck today's complaints Discharge Instructions: - Discharge Summary Sheet [facility] - Kidney Stones, [id number] [facility] - Abdominal Pain, Adult, [id number] [facility] Forms: - Medication Reconciliation Form [facility] - Thank You Letter [facility] - Antibiotic Education [facility] - Prescription Opioid Use [facility] Prescriptions: - ketorolac 10 mg Oral tablet - take 1 tablet by ORAL route every 6 hours As needed not to exceed 40 mg in [facility] 24hrs; 12 tablet; Refills: 0, Product Selection Permitted Signatures: Dispatcher [employer] EDEzra Lauren MD MD ma2 Trang Parrish RN RN vg1 Dee Monae RN RN ll1 Clement Bedolla MD MD 7 Richard Shepard RN RN mr2
[2020-12-05 23:38] VITALS: BP 137/92; TEMP 97.1; O2SAT 98
== END 2020-12-05 23:14 | disposition home or self-care (01) ==
LOC: ER 17:13
DX: N20.0 Calculus of kidney (principal); F31.9 Bipolar disorder, unspecified; F17.210 Nicotine dependence, cigarettes, uncomplicated
CPT/HCPCS: 85025; 80048; 36415; 80076; 81003; 83690; 74177; Q9967; J7030; J2405; 96374; 96375; 99284

== ENCOUNTER 2021-01-29 23:02 | Emergency (ER) | payer OTHER ==
[2021-01-29] MEDS ORDERED: KETOROLAC 30 MG/ML INJ ONE (23:26)
[2021-01-29] MEDS ORDERED: ONDANSETRON 4 MG/2 ML VIAL ONE (23:26)
[2021-01-29 23:46] LABS: Urine Blood 3+ (Negative); Urine Glucose Negative (Negative); Urine Protein 1+ (Negative)
[2021-01-29 23:59] LABS: Absolute Lymphocytes (CBC) 1.7 K/uL (0.7-4.9); Basophils % 0.5 % (0-1.3); Hematocrit 46.6 % (39.6-49.0); Lymphocytes % 13.7 % (15.3-44.8); MPV 7.4 fL (7.6-11.3); RBC Red Blood Cell Count 5.44 M/uL (4.33-5.43)
[2021-01-30 00:04] LABS: Albumin 4.2 g/dL (3.4-5.0); Bilirubin Direct 0.2 mg/dL (0-0.2); Bilirubin Total 0.7 mg/dL (0.2-1.0); Potassium 3.7 mmol/L (3.5-5.1); Protein, Total 7.5 g/dL (6.4-8.2)
[2021-01-30] MEDS ORDERED: NA CHLORIDE 0.9% 1,000 ML ONE (00:04)
[2021-01-30] MEDS ORDERED: MORPHINE 2 MG/ML SYR ONE (00:04)
[2021-01-30 01:12] LABS: Calcium Oxalate Crystals- Ur MANY (NONE SEEN)
[2021-01-30 01:13] LABS: Urine Bacteria <20 /HPF (NONE SEEN); Urine RBC >50 /HPF (NONE SEEN)
[2021-01-30] MEDS ORDERED: MEPERIDINE HCL 50 MG/ML ONE (01:35)
--- NOTE | 2021-01-30 02:37 | EDPHYS ---
Physician Documentation [facility] Name: Hussain Zee Age: 35 yrs Sex: Male : 1985 Arrival Date: 01/29/2021 Time: 23:03 Bed 17 Private MD: PETRA Physician Manuel Arrieta HPI: 01/30 00:12 This 35 yrs old Male presents to ER via Ambulatory with complaints of Abdominal Pain - jr8 Severe. 00:12 Modifying factors: The symptoms are alleviated by nothing, the symptoms are aggravated jr8 by movement. Severity of pain: At its worst the pain was moderate in the emergency department the pain is unchanged. The patient has not experienced similar symptoms in the past. The patient has been recently seen by a physician:. This is a 35-year-old male patient that had sudden onset of left lower abdominal pain radiating to the back. Patient stated that he has a history of nephro lithiasis but has never had any descend. Patient denies any fevers, diarrhea, vomiting.. - Immunization history:: Client reports receiving the 2nd dose of the Covid vaccine. - Social history:: Smoking status: unknown. ROS: 00:12 Eyes: Negative for injury, pain, redness, and discharge, ENT: Negative for injury, jr8 pain, and discharge, Neck: Negative for injury, pain, and swelling, Cardiovascular: Negative for chest pain, palpitations, and edema, Respiratory: Negative for shortness of breath, cough, wheezing, and pleuritic chest pain, Back: Negative for injury and pain, MS/Extremity: Negative for injury and deformity, Skin: Negative for injury, rash, and discoloration, Neuro: Negative for headache, weakness, numbness, tingling, and seizure. 00:12 Abdomen/GI: Positive for abdominal pain, Negative for nausea, vomiting, and diarrhea. Exam: 00:12 Cardiovascular: Regular rate and rhythm with a normal S1 and S2. No gallops, murmurs, jr8 or rubs. Normal PMI, no JVD. No pulse deficits. Respiratory: Lungs have equal breath sounds bilaterally, clear to auscultation and percussion. No rales, rhonchi or wheezes noted. No increased work of breathing, no retractions or nasal flaring. Back: No spinal tenderness. No costovertebral tenderness. Full range of motion. Skin: Warm, dry with normal turgor. Normal color with no rashes, no lesions, and no evidence of cellulitis. MS/ Extremity: Pulses equal, no cyanosis. Neurovascular intact. Full, normal range of motion. Neuro: Awake and alert, GCS 15, oriented to person, place, time, and situation. Cranial nerves II-XII grossly intact. Motor strength 5/5 in all extremities. Sensory grossly intact. 00:12 Constitutional: The patient appears alert, awake, in obvious pain. 00:12 Abdomen/GI: Inspection: abdomen appears normal, Bowel sounds: active, all quadrants, Palpation: soft, in all quadrants, moderate abdominal tenderness, in the anterior aspect of left lateral abdomen and left lower quadrant, mass, is not appreciated, rebound tenderness, is not appreciated, voluntary guarding, is not appreciated, involuntary guarding, is not appreciated, no appreciated organomegaly, Indicators: McBurney's point is not tender, Crouch's sign is negative, Rovsing's sign is negative. Vital Signs: 01/29 23:09 Pulse 74; Resp 28; Temp 98.5; Pulse Ox 100% on R/A; Weight 88.45 kg; Height 5 ft. 10 da3 in. (177.80 cm); 23:09 BP 145 / 95; da3 01/30 00:26 BP 121 / 78; Pulse 74; Resp 16 S; Pulse Ox 95% on R/A; bb 01:50 BP 129 / 80; Pulse 86; Resp 20; Pulse Ox 98% 0 lpm ; Pain 6/10; sv1 02:01 BP 162 / 95; Pulse 75; Resp 16; Temp 97.9; Pulse Ox 93% 0 lpm ; sv1 04:29 BP 117 / 78; Pulse 80; Resp 16 S; Temp 98.7(O); Pulse Ox 98% on R/A; Pain 4/10; bb 01/29 23:09 Body Mass Index 27.98 (88.45 kg, 177.80 cm) da3 MDM: 01/29 23:17 Patient medically screened. jr8 01/30 02:34 Data reviewed: vital signs, nurses notes, lab test result(s), radiologic studies, CT jr8 scan. Data interpreted: Pulse oximetry: on room air is 95 %. Interpretation: normal. Counseling: I had a detailed discussion with the patient and/or guardian regarding: the historical points, exam findings, and any diagnostic results supporting the discharge/admit diagnosis, lab results, radiology results, the need for outpatient follow up, a urologist, to return to the emergency department if symptoms worsen or persist or if there are any questions or concerns that arise at home. Response to treatment: the patient's symptoms have markedly improved after treatment. ED course: Patient's pain controlled at this time. Hemodynamically stable and able to tolerate fluids. No active vomiting is able to urinate as well. Patient has a approximately 5 mm stone left proximal ureter with mild hydro-. No fever, no signs for sepsis. Now that patient's pain is controlled will trial outpatient with pain management and nausea. Needs to follow back with his urologist and knows to come back if you do acutely worsen, cannot tolerate his medicines, has fever.. 01/29 23:17 Order name: Basic Metabolic Panel; Complete Time: 00:11 [facility] 01/29 23:17 Order name: CBC with Diff; Complete Time: 00:11 [facility] 01/29 23:17 Order name: Hepatic Function; Complete Time: 00:11 [facility] 01/29 23:17 Order name: Lipase; Complete Time: 00:11 [facility] 01/29 23:17 Order name: Urine Microscopic Only; Complete Time: 01:16 [facility] 01/29 23:46 Order name: Urine Dipstick-Ancillary; Complete Time: 23:59 [facility] 01/29 23:59 Order name: CT Stone Protocol [facility] 01/29 23:17 Order name: IV Saline Lock; Complete Time: 23:38 [facility] 01/29 23:17 Order name: Labs collected and sent; Complete Time: 23:38 [facility] 01/29 23:17 Order name: Urine Dipstick-Ancillary (obtain specimen); Complete Time: 23:46 [facility] Administered Medications: 01/29 23:37 Drug: Ketorolac 15 mg Route: IVP; Site: right antecubital; 01/30 00:12 Follow up: Response: No change in condition bb 01/29 23:37 Drug: Zofran (Ondansetron) 4 mg Route: IVP; Site: right antecubital; 01/30 00:12 Follow up: Response: No adverse reaction bb 00:05 Drug: morphine 4 mg Route: IVP; Site: right antecubital; bb 04:28 Follow up: Response: No adverse reaction bb 00:05 Drug: NS 0.9% 1000 ml Route: IV; Rate: 1000 ml; Site: right antecubital; bb 01:39 Drug: Demerol (meperidine) 50 mg Route: IVP; Site: right antecubital; as6 04:28 Follow up: Response: No adverse reaction bb 04:29 Follow up: Response: No adverse reaction; Pain is decreased sv1 Disposition: 12:59 Co-signature as Attending Physician, Manuel Arrieta MD I agree with the assessment and joon plan of care. Disposition Summary: 01/30/21 02:36 Discharge Ordered Location: Home jr Problem: new jr8 Symptoms: have improved jr8 Condition: Stable jr8 Diagnosis - Hydronephrosis with renal and ureteral calculous obstruction jr8 Followup: jr8 - With: Edgar Vera MD - When: 1 week - Reason: Recheck today's complaints, Continuance of care, Re-evaluation by your physician Discharge Instructions: - Discharge Summary Sheet jr8 - Kidney Stones jr8 - Hydronephrosis jr8 Forms: - Medication Reconciliation Form jr8 - Thank You Letter jr8 - Antibiotic Education jr8 - Prescription Opioid Use jr8 Prescriptions: - tamsulosin 0.4 mg Oral capsule - take 1 capsule by ORAL route At bedtime 1/2 hour following the same meal each jr8 day; 16 capsule; Refills: 0, Product Selection Permitted - Zofran 4 mg Oral Tablet - take 1 tablet by ORAL route every 12 hours As needed; 20 tablet; Refills: 0, 8 Product Selection Permitted - Tylenol-Codeine #3 300 mg-30 mg Oral - take 2 tablet by ORAL route every 8 hours As needed; 20 tablet; Refills: 0, 8 Product Selection Permitted Signatures: Dispatcher [employer] [facility] Manuel Arrieta MD MD cha Ballard, Brenda RN RN Vincent Martinez PA PA jr8 Robert Mancilla RN RN da3 Tai Arnold RN RN as6 Eitan Adame RN sv1 Corrections: (The following items were deleted from the chart) 00:01 01/29 23:42 Abdomen Pelvis W Con+CT.RAD.BRZ ordered. [facility] EDHI 01/30 00:10 01/29 23:43 Abdomen Pelvis W/Wo Con+CT.RAD.BRZ ordered. EDMS EDMS
--- NOTE | 2021-01-30 02:37 | ER ---
Nurse's Notes [facility] Name: Hussain Zee Age: 35 yrs Sex: Male : 1985 Arrival Date: 01/29/2021 Time: 23:03 Bed 17 Private MD: Diagnosis: Hydronephrosis with renal and ureteral calculous obstruction Presentation: 01/29 23:09 Chief complaint: Patient states: abd and back pain x today. Coronavirus screen: Vaccine da3 status: Patient reports receiving the 2nd dose of the covid vaccine. Ebola Screen: No symptoms or risks identified at this time. Initial Sepsis Screen: Does the patient meet any 2 criteria? No. Patient's initial sepsis screen is negative. Initial Sepsis Screen: Does the patient have a suspected source of infection? No. Patient's initial sepsis screen is negative. Risk Assessment: Do you want to hurt yourself or someone else? Patient reports no desire to harm self or others. Onset of symptoms was January 29, 2021. 23:09 Method Of Arrival: Ambulatory da3 23:09 Acuity: ESTEBAN 3 da3 Triage Assessment: 23:09 General: Appears distressed, uncomfortable, Behavior is crying, restless. GI: No da3 deficits noted. 23:09 Pain: Complains of pain in back and abdomen Pain currently is 10 out of 10 on a pain da3 scale. - Immunization history:: Client reports receiving the 2nd dose of the Covid vaccine. - Social history:: Smoking status: unknown. Screenin:50 Abuse screen: Denies threats or abuse. Nutritional screening: No deficits noted. as6 Tuberculosis screening: No symptoms or risk factors identified. Fall Risk None identified. Assessment: 23:47 General: Appears uncomfortable, Behavior is crying, restless. Pain: Complains of pain as6 in left lower quadrant Pain radiates to back Quality of pain is described as sharp, shooting. Neuro: Level of Consciousness is awake, alert, obeys commands, Oriented to person, place, time, situation. Cardiovascular: Capillary refill < 3 seconds Patient's skin is warm and dry. Respiratory: Airway is patent Trachea midline Respiratory effort is even, unlabored, Respiratory pattern is regular, symmetrical. GI: Abdomen is tender to palpation in left lower quadrant. Derm: Skin is intact, is healthy with good turgor. 01/30 00:12 Reassessment: pt to CT scan via stretcher accompanied by cat scan tech. bb 00:25 Reassessment: Patient is alert, oriented x 3, equal unlabored respirations, skin bb warm/dry/pink. pt crying states his pain improved a little after morphine but is still there. 02:02 Reassessment: Resting quietly. Vital signs stable. Ct abd completed.. sv1 04:27 Reassessment: Patient is alert, oriented x 3, equal unlabored respirations, skin bb warm/dry/pink. pt states pain has improved now 4/10. Pt verbalized understanding of and agrees to plan of care discharge instructions given pt ambulated with steady walk to exit Patient states feeling better. Patient states symptoms have improved. Vital Signs: 01/29 23:09 Pulse 74; Resp 28; Temp 98.5; Pulse Ox 100% on R/A; Weight 88.45 kg; Height 5 ft. 10 da3 in. (177.80 cm); 23:09 BP 145 / 95; da3 01/30 00:26 BP 121 / 78; Pulse 74; Resp 16 S; Pulse Ox 95% on R/A; bb 01:50 BP 129 / 80; Pulse 86; Resp 20; Pulse Ox 98% 0 lpm ; Pain 6/10; sv1 02:01 BP 162 / 95; Pulse 75; Resp 16; Temp 97.9; Pulse Ox 93% 0 lpm ; sv1 04:29 BP 117 / 78; Pulse 80; Resp 16 S; Temp 98.7(O); Pulse Ox 98% on R/A; Pain 4/10; bb 01/29 23:09 Body Mass Index 27.98 (88.45 kg, 177.80 cm) da3 ED Course: 01/29 23:03 Patient arrived in ED. wm 23:09 Arm band placed on left wrist. da3 23:13 Triage completed. da3 23:17 Vincent Maurice PA is PHCP. jr8 23:17 Manuel Arrieta MD is Attending Physician. jr8 23:24 Tai Arnold RN is Primary Nurse. as6 23:47 Inserted saline lock: 18 gauge in right antecubital area, using aseptic technique. as6 Blood collected. 23:50 Bed in low position. Call light in reach. Side rails up X 1. Pulse ox on. NIBP on. as6 01/30 00:26 IV is patent, is intact, with fluids infusing freely. bb 00:40 CT Stone Protocol In Process Unspecified. EDMS 01:34 Eitan Adame, RN is Primary Nurse. sv1 02:36 Edgar Vera MD is Referral Physician. jr8 04:29 No provider procedures requiring assistance completed. IV discontinued, intact, bb bleeding controlled, No redness/swelling at site. Pressure dressing applied. Administered Medications: 01/29 23:37 Drug: Ketorolac 15 mg Route: IVP; Site: right antecubital; as6 01/30 00:12 Follow up: Response: No change in condition bb 01/29 23:37 Drug: Zofran (Ondansetron) 4 mg Route: IVP; Site: right antecubital; as6 01/30 00:12 Follow up: Response: No adverse reaction bb 00:05 Drug: morphine 4 mg Route: IVP; Site: right antecubital; bb 04:28 Follow up: Response: No adverse reaction bb 00:05 Drug: NS 0.9% 1000 ml Route: IV; Rate: 1000 ml; Site: right antecubital; bb 01:39 Drug: Demerol (meperidine) 50 mg Route: IVP; Site: right antecubital; as6 04:28 Follow up: Response: No adverse reaction bb 04:29 Follow up: Response: No adverse reaction; Pain is decreased sv1 Outcome: 02:36 Discharge ordered by . jr8 04:29 Discharged to home ambulatory. bb 04:29 Condition: stable 04:29 Discharge instructions given to patient, Instructed on discharge instructions, follow up and referral plans. no driving heavy equipment, medication usage, Demonstrated understanding of instructions, follow-up care, medications, Prescriptions given X 3. 04:30 Patient left the ED. bb Signatures: Dispatcher [employer] EDMS Marla Gabriel RN RN bb Vincent Maurice PA PA jr8 Libby Forrester David, RN RN da3 Tai Arnold RN RN as6 Eitan Adame, RN RN sv1
[2021-01-30 04:48] VITALS: BP 117/78; TEMP 98.7; O2SAT 98
--- NOTE | 2021-01-30 12:32 | RAD REPORT ---
EXAM DESCRIPTION: CT - Stone Protocol - 01/30/2021 4:36 am CLINICAL HISTORY: The patient is 35 years old and is Male; ABD PAIN TECHNIQUE: Axial computed tomography images of the abdomen and pelvis without intravenous contrast. Sagittal and coronal reformatted images were created and reviewed. This CT exam was performed usi ng one or more of the following dose reduction techniques: automated exposure control, adjustment o f the mA and/or kV according to patient size, and/or use of iterative reconstruction technique. COMPARISON: No relevant prior studies available. FINDINGS: Lung bases: Bibasilar dependent atelectasis. ABDOMEN: Liver: Unremarkable. Gallbladder and bile ducts: Unremarkable. No calcified stones. No ductal dilation. Pancreas: Unremarkable. No ductal dilation. Spleen: Unremarkable. No splenomegaly. Adrenals: Unremarkable. No mass. Kidneys and ureters: 4 mm stone in the proximal left ureter with mild left hydroureteronephrosis and perinephric/periureteral stranding. Nonobstructing calcifications in the left kidney. Stomach and bowel: Unremarkable. No obstruction. No mucosal thickening. PELVIS: Appendix: No findings to suggest acute appendicitis. Bladder: Unremarkable. No stones. Reproductive: Unremarkable as visualized. ABDOMEN and PELVIS: Intraperitoneal space: Unremarkable. No free air. No significant fluid collection. Bones/joints: No acute fracture. No dislocation. Soft tissues: Unremarkable. Vasculature: Unremarkable. No abdominal aortic aneurysm. Lymph nodes: Unremarkable. No enlarged lymph nodes. IMPRESSION: 4 mm stone in the proximal left ureter with mild left hydroureteronephrosis and perineph malka/periureteral stranding. Electronically signed by: Tae Coleman MD 01/30/2021 1:14 AM ACADEMIC AFFAIRS MANAGER Due to temporary technical issues with the PACS/Fluency reporting system, reports are being signed by the in house radiologist without review as a courtesy to ensure prompt reporting. The interpreting r adiologist is fully responsible for the content of the report.
== END 2021-01-30 04:30 | disposition home or self-care (01) ==
LOC: ER 23:02
DX: N13.2 Hydronephrosis with renal and ureteral calculous obstruction (principal)
CPT/HCPCS: 85025; 80048; 36415; 80076; 83690; 76377; 74176; 96375; 96374; 99284; J2270; J2175; J7030; J2405; 81003; 81015

== ENCOUNTER 2021-02-02 10:23 | Day surgery (SDC) | payer OTHER ==
[2021-02-02] MEDS ORDERED: Ringers Lactate 1,000 ML IV ONE (11:22)
[2021-02-02] MEDS ORDERED: CEFAZOLIN/NS 1gm 1 GM/50 ML BAG ONE (11:23)
[2021-02-02] MEDS ORDERED: MIDAZOLAM HCL 2 MG/2 ML INJ ONE (12:55)
[2021-02-02] MEDS ORDERED: propofoL 200 MG/20 ML VIAL IV ONE (12:56)
[2021-02-02] MEDS ORDERED: LIDOCAINE 1% MPF 5 ML VIAL ONE (12:56)
[2021-02-02] MEDS ORDERED: FENTANYL CITR 100 MCG/2 ML ONE (12:56)
[2021-02-02] MEDS ORDERED: dexAMETHasone 10 MG/ML VIAL ONE (13:03)
[2021-02-02] MEDS ORDERED: ONDANSETRON 4 MG/2 ML VIAL ONE (13:03)
[2021-02-02] MEDS ORDERED: KETOROLAC 30 MG/ML INJ ONE (13:04)
[2021-02-02] MEDS ORDERED: CEFAZOLIN SODIUM 1 GM/VIAL ONE (13:40)
[2021-02-02] MEDS ORDERED: CODEINE 30MG/APAP 300MG TAB PO PRN (14:12)
[2021-02-02] MEDS ORDERED: PHENAZOPYRIDINE 100MG TAB PO ONE ×2 (14:12→15:02)
[2021-02-02 14:33] VITALS: TEMP 97.5
--- NOTE | 2021-02-02 14:40 | RAD REPORT ---
EXAM DESCRIPTION: RAD - Urethrocystogrphy Retrograde - 02/02/2021 2:11 pm CLINICAL HISTORY: STENT PLACEMENT COMPARISON: Stone Protocol dated 01/30/2021 FINDINGS/IMPRESSION: Several intraoperative fluoroscopic images submitted showing cannulation of the left ureter, opacification of the left ureter and collecting system with contrast, and guidewire wendy trinity. The stone is again identified in the left proximal ureter. The final image showed deployment of a left ureteral stent. Fluoro time: 28 seconds Dose: 10.5 mGy
[2021-02-02] MEDS ORDERED: CODEINE 30MG/APAP 300MG TAB ONE (15:02)
[2021-02-02 17:16] VITALS: BP 106/75; O2SAT 97
--- NOTE | 2021-02-05 08:17 | EKG ---
Test Date: 2021-02-02 Test Time: 11:08:36 Staffing Branch Manager: HUNTER MEASUREMENT RESULTS: Intervals: Rate: 76 AK: 144 QRSD: 90 QT: 356 QTc: [address]: P: 8 AK: 144 QRS: 64 T: 16 INTERPRETIVE STATEMENTS: Normal sinus rhythm Normal ECG No previous ECG available for comparison Electronically Signed On 02-05-21 08:13:42 HEALTHCARE APPLICATIONS ANALYST by Manjinder Barkley
--- NOTE | 2021-02-06 11:51 | OP ---
Date of Procedure: 02/02/2021 Surgeon: BRADLEY BARAJAS Preoperative Diagnoses: 1.Left hydronephrosis. 2.Left ureterolithiasis. 3.Left flank pain. Postoperative Diagnoses: 1.Left hydronephrosis. 2.Left ureterolithiasis. 3.Left flank pain. Principal Procedures: 1.Cystoscopy. 2.Left retrograde pyelography. 3.Attempted but failed 6-Rwandan left ureteral stent. 4.4.8-Rwandan left ureteral stent placement. Indication For Procedure: Mr. Zee presented to Urology Clinic yesterday with complaints of severe p ain associated with an obstructing 5 mm proximal ureteral calculus. He was counseled about managemen t options to include a stent and the potential discomfort associated and elects to proceed. Procedure In Detail: The patient was consented in the preoperative holding area before being transfe rred to the operative suite where general anesthesia was induced. He was given Ancef 2 g IV antimicr obial prophylaxis and pneumo boots were provided for DVT prophylaxis. He was placed in the lithotomy position, padded, and secured to the table appropriately. His genitalia were prepped using Hibiclen s and draped in standard fashion. The case was begun using a 22-Rwandan rigid cystoscope to traverse the urethra and enter the bladder with ease. The bladder was surveyed, and no obvious papillary muco erasmo lesions, foreign bodies, or stones were noted throughout. The ureteral orifices were orthotopic in location. Left retrograde pyelography: Using a 70:30 mixture of Omnipaque and saline, after cannulating the le ft ureteral orifice using the tip of a 5-Rwandan ureteral access catheter, I injected the contrast mix ture which did propagate relatively easily up a moderately dilated ureter into a moderately dilated r enal pelvis with moderate caliectasis. I then passed a Sensor wire up the 5-Rwandan ureteral catheter and into the upper pole of the kidney with a coil observed fluoroscopically there. I then attempted to pass a 6-Rwandan by 26 cm double-J ureteral stent, but that stent tip would not pass beyond 1 to 2 cm into the ureteral orifice. After several attempts to pass it over the wire, I then removed the s tent off the wire, leaving the wire in place and instead passed a dual-lumen catheter over the indwel ling Sensor wire but again injected contrast via the second lumen to confirm adequate intraureteral l umen location. The contrast was confirmed to be within the ureteral lumen and to enter the renal pel vis with ease. As a result, I then removed the dual-lumen catheter after attempting to dilate whatev er point of obstruction was in the distal ureter, but it would not pass. I was then able to remove i t and pass a 5-Rwandan ureteral access catheter all the way to the renal pelvis with ease. As such, I employed a 4.8-Rwandan double-J ureteral stent by 26 cm, which was passed with ease into the renal pe lvis with a coil observed fluoroscopically there and one cystoscopically formed in the bladder. I th en decompressed his bladder of fluid and urine, and took him out of the lithotomy position. He was t hen awakened from general anesthesia, transferred to a stretcher, and then transferred to the recover y room in good condition. Complications: None. Discharge Disposition: He should follow up in the Urology Clinic to plan definitive ureteroscopic ma nagement with laser lithotripsy. This alternatively may be scheduled directly if possible to be done within 30 days. SANDRA/PETR Voice ID: [id number] Report ID: [id number]
== END 2021-02-02 15:26 | disposition home or self-care (01) ==
LOC: OR 10:23
PROVIDERS: ATTEND Urology
PROC: BT1FYZZ Fluoroscopy of Left Kidney, Ureter and Bladder using Other Contrast (ICD-10-PCS; 2021-02-02)
PROC: 0T778DZ Dilation of Left Ureter with Intraluminal Device, Via Natural or Artificial Opening Endoscopic (ICD-10-PCS; principal; 2021-02-02 14:15)
DX: N13.2 Hydronephrosis with renal and ureteral calculous obstruction (principal); F41.9 Anxiety disorder, unspecified; F32.A Depression, unspecified; F31.9 Bipolar disorder, unspecified; F17.200 Nicotine dependence, unspecified, uncomplicated; Z20.822 Contact with and (suspected) exposure to COVID-19
CPT/HCPCS: 93005; 87088; 87086; 74450; 51610; 52332; 52005; U0003; J2704; J2250; J3010; J1100; J0690 ×2; J7120; J2405

== ENCOUNTER 2021-02-20 09:55 | Day surgery (SDC) | payer OTHER ==
[~2021-02-20 09:55] MED LIST: AMPICILLIN SODIUM 2 GM in NA CHLORIDE 0.9% 100 ML IVPB ONE; Gentamicin Inj 240 MG in NA CHLORIDE 0.9% 100 ML IVPB ONE
[2021-02-20] MEDS ORDERED: Ringers Lactate 1,000 ML IV ONE (10:35)
[2021-02-20] MEDS ORDERED: propofoL 200 MG/20 ML VIAL IV ONE (13:14)
[2021-02-20] MEDS ORDERED: FENTANYL CITR 100 MCG/2 ML ONE ×2 (13:14→13:53)
[2021-02-20] MEDS ORDERED: MIDAZOLAM HCL 2 MG/2 ML INJ ONE (13:14)
[2021-02-20] MEDS ORDERED: ONDANSETRON 4 MG/2 ML VIAL ONE (13:19)
[2021-02-20] MEDS ORDERED: LIDOCAINE 1% MPF 5 ML VIAL ONE (13:20)
[2021-02-20] MEDS: HYDROMORPHONE HCL 1 MG/ML INJ ONE ×2 (14:48→15:03)
[2021-02-20 15:29] VITALS: BP 111/94; TEMP 97.9; O2SAT 94
--- NOTE | 2021-02-20 15:32 | RAD REPORT ---
EXAM DESCRIPTION: RAD - Urethrocystogrphy Retrograde - 02/20/2021 2:49 pm CLINICAL HISTORY: LEFT URETEROSCOPY, LASER LITHOTRIPSY, STENT EXCHANGE COMPARISON: Urethrocystogrphy Retrograde dated 02/02/2021; Stone Protocol dated 01/30/2021 FINDINGS/IMPRESSION: Intraoperative fluoroscopic images submitted showing placement of a left-sided ureteral stent. A stone is again seen in the left proximal to mid ureter. Fluoro time: 14 second Images submitted: 12
[2021-02-20] MEDS ORDERED: CODEINE 30MG/APAP 300MG TAB ONE (15:37)
[2021-02-20 15:41] LABS: Potassium 4.6 mmol/L (3.5-5.1)
--- NOTE | 2021-02-20 15:44 | OP ---
Date of Procedure: 02/20/2021 Surgeon: BRADLEY BARAJAS Preoperative Diagnoses: 1.Left obstructive ureterolithiasis. 2.Left nephrolithiasis. Postoperative Diagnoses: 1.Left obstructive ureterolithiasis. 2.Left nephrolithiasis. Principle Procedures: Left ureteroscopy with pyeloscopy, laser lithotripsy, left ureteral stent exch delisa. Indication For Procedure: Mr. Zee is a 35-year-old gentleman, who presented to the [facility]rology Clinic h aving been seen in the emergency department with severe left flank pain associated with an obstructin g approximately 4 mm ureteral calculus. He underwent urgent left ureteral stent placement due to the presence of acute kidney injury and presents today for definitive management of the stone. Procedure In Detail: The patient was consented in the preoperative holding area before being transfe rred to operative suite where general anesthesia was induced. He was given ampicillin and gentamicin IV antimicrobial prophylaxis and pneumo boots were provided for DVT prophylaxis. He was placed in t he lithotomy position, padded and secured to the table appropriately. His genitalia were prepped usi ng Hibiclens and draped in standard fashion. The case was begun using a 22-Lao rigid cystoscope t o traverse the urethra and into the bladder with ease. The left ureteral stent was observed to emana te from the left ureteral orifice, and it was grasped using an alligator grasper and delivered to the meatus. A Sensor wire was passed via the stent and did propagate up the ureter and coil within the upper pole of the kidney putatively. I then performed a retrograde pyelogram by passing a dual-lumen catheter over the indwelling Sensor wire into the mid distal ureter. Left retrograde pyelography: Using a 70:30 mixture of Omnipaque and saline, contrast mixture was injected via the second lumen of the dual-lumen catheter and did propagate up nondilated ureter before reaching a point of apparent st enosis in the proximal ureter just 2 or 3 cm distal to the left UPJ. Contrast did enter the renal pe lvis and delineate the calices which were nondilated at this time. I thus passed a Pets [employer] family too guidewire via the second lumen of the dual-lumen catheter and then removed the dual-lumen catheter. Under dir ect vision, I was then able to pass the semi-rigid ureteroscope via the urethra and into the left dis arianna ureter. I was able to navigate beyond the ureteral orifice and into the mid proximal ureter but given the tension associated, further attempts to pass it more proximally were not performed. As a r esult, I removed the semi-rigid ureteroscope and passed over the Bentson guidewire a flexible uretera l scope. I did encounter the stone in the proximal ureter and I utilized a 272 nm laser fiber and la ser settings of 0.8 joules and 8 hertz alternating with 0.3 joules and 35 hertz to fragment the stone to dust smaller than 1 mm. I then proceeded to navigate the ureteroscope into the kidney and into t he lower pole initially where one of the stone fragments did progress, and I fragmented additional ca lculi within the lower pole calices. I then surveyed into the mid pole calices and to the upper pole calices where an additionally approximately 3 or 4 mm flat Luan plaque was encountered. So, I ut ilized the laser fiber to fragment that plaque off from its attachment and dust the stone to fragment sizes smaller than a mm. I then surveyed through the renal pelvis and down into the proximal, mid, and distal ureter where no additional fragments of any significant size were encountered. I removed the ureteroscope and then back-loaded the cystoscope over the indwelling safety wire. I passed a 6-F rench by 26 cm double-J ureteral stent into his left kidney with a coil observed fluoroscopically wit hin the renal pelvis and 1 cystoscopically formed within the bladder. I then decompressed his bladde r fluid and urine and was able to collect some of the stone debris. This was sent for chemical beth sis. I then took the patient out of the lithotomy position, he was awakened from general anesthesia, transferred to a stretcher, and then transferred to the recovery room in good condition. Complications: None. Discharge Disposition: He should follow up in Urology Clinic in about 2-3 weeks or within 2-4 weeks is adequate for a cystoscopy and left ureteral stent extraction. He will be discharged with a 7-day prescription for Bactrim in addition t o Tylenol No.3 for pain. SANDRA/MODL Voice ID: [id number] Report ID: [id number]
[2021-02-20] MEDS ORDERED: PHENAZOPYRIDINE 100MG TAB PO ONE (15:57)
== END 2021-02-20 16:22 | disposition home or self-care (01) ==
LOC: OR 09:55
PROVIDERS: ATTEND Urology
PROC: 0T778DZ Dilation of Left Ureter with Intraluminal Device, Via Natural or Artificial Opening Endoscopic (ICD-10-PCS; 2021-02-20)
PROC: 0TF78ZZ Fragmentation in Left Ureter, Via Natural or Artificial Opening Endoscopic (ICD-10-PCS; principal; 2021-02-20 11:15)
DX: N20.1 Calculus of ureter (principal); N20.0 Calculus of kidney; Z20.822 Contact with and (suspected) exposure to COVID-19
CPT/HCPCS: 87088; 87086; 80048; 36415; 88300; 82360; 74450; 51610; 52356; U0003; J2704; J1580; J2250; J3010 ×2; J1170; J7120; J2405; J0290

== ENCOUNTER 2023-06-20 07:01 | Emergency (ER) | payer OTHER ==
--- NOTE | 2023-06-20 11:36 | EDPHYS ---
Physician Documentation [facility] Name: Hussain Zee Age: 37 yrs Sex: Male : 1985 Arrival Date: 06/20/2023 Time: 07:01 Bed 6 Private MD: ED Physician Daisy Sewell HPI: 06/19 07:25 This 37 yrs old Male presents to ER via Ambulatory with complaints of Leg sp3 Pain. 07:25 37-year-old male with a history of bipolar disease, depression, cervical herniated sp3 disks and prior fibula fracture status post repair several months ago now presents with right calf pain. Patient rides a skateboard and still has a cane and states he cannot drive. No reports of fall, direct trauma or notable muscle strain or pull. He denies numbness or tingling. He denies any current low back pain or posterior upper leg pain. Pain is mainly in the right calf. He denies any other symptoms including fever, URI symptoms, chest pain, shortness of breath, abdominal pain, vomiting, diarrhea, prolonged immobilization, travel history, or any other signs or symptoms on ROS at this time.. Historical: - Allergies: 07:24 No Known Allergies; hb - Home Meds: 07:23 gabapentin oral [Active]; hb - PMHx: 07:23 Anxiety; Bipolar disorder; depressive disorder; HERNIATED DISC C5-C6; shoulder problem; hb - PSHx: 07:23 R Leg; hb - Immunization history:: Adult Immunizations up to date. - Infectious Disease History:: Denies. - Social history:: Smoking status: Patient reports the use of cigarette tobacco products, smokes one pack cigarettes per day. ROS: 07:26 Constitutional: Negative for fever, chills, and weight loss, Eyes: Negative for injury, sp3 pain, redness, and discharge, ENT: Negative for injury, pain, and discharge, Neck: Negative for injury, pain, and swelling, Cardiovascular: Negative for chest pain, palpitations, and edema, Respiratory: Negative for shortness of breath, cough, wheezing, and pleuritic chest pain, Abdomen/GI: Negative for abdominal pain, nausea, vomiting, diarrhea, and constipation, Back: Negative for injury and pain, Skin: Negative for injury, rash, and discoloration, Neuro: Negative for headache, weakness, numbness, tingling, and seizure, Psych: Negative for depression, anxiety, suicide ideation, homicidal ideation, and hallucinations, Allergy/Immunology: Negative for hives, rash, and allergies, Endocrine: Negative for neck swelling, polydipsia, polyuria, polyphagia, and marked weight changes, 07:26 All other systems are negative, Exam: 07:27 Constitutional: This is a well developed, well nourished patient who is awake, alert, sp3 and in no acute distress. Head/Face: Normocephalic, atraumatic. Eyes: Pupils equal round and reactive to light, extra-ocular motions intact. Lids and lashes normal. Conjunctiva and sclera are non-icteric and not injected. Cornea within normal limits. Periorbital areas with no swelling, redness, or edema. Neck: Trachea midline, no thyromegaly or masses palpated, and no cervical lymphadenopathy. Supple, full range of motion without nuchal rigidity, or vertebral point tenderness. No Meningismus. Chest/axilla: Normal chest wall appearance and motion. Nontender with no deformity. No lesions are appreciated. Cardiovascular: Regular rate and rhythm with a normal S1 and S2. No gallops, murmurs, or rubs. Normal PMI, no JVD. No pulse deficits. Respiratory: Lungs have equal breath sounds bilaterally, clear to auscultation and percussion. No rales, rhonchi or wheezes noted. No increased work of breathing, no retractions or nasal flaring. Abdomen/GI: Soft, non-tender, with normal bowel sounds. No distension or tympany. No guarding or rebound. No evidence of tenderness throughout. Back: No spinal tenderness. No costovertebral tenderness. Full range of motion. Skin: Warm, dry with normal turgor. Normal color with no rashes, no lesions, and no evidence of cellulitis. Neuro: Awake and alert, GCS 15, oriented to person, place, time, and situation. Cranial nerves II-XII grossly intact. Motor strength 5/5 in all extremities. Sensory grossly intact. Cerebellar exam normal. Normal gait. Psych: Awake, alert, with orientation to person, place and time. Behavior, mood, and affect are within normal limits. 07:27 Musculoskeletal/extremity: Right calf pain on palpation of the musculature. Distal neurovascular exam is normal. No bony tenderness.. Vital Signs: 07:09 BP 134 / 84; Pulse 84; Resp 16; Temp 97.9(TE); Pulse Ox 99% on R/A; Weight 81.65 kg; hb Height 5 ft. 10 in. ; Pain 10/10; 08:56 Resp 16; Temp 97.8; Pulse Ox 98% ; ap3 07:09 Body Mass Index 25.83 (81.65 kg, 177.8 cm) hb 07:09 Pain Scale: Adult hb MDM: 07:09 Patient medically screened. sp3 07:27 Data reviewed: vital signs, nurses notes, radiologic studies. ED course: 37-year-old sp3 male with right calf pain. Differential diagnosis includes muscle strain, DVT, referred pain from any lumbar disc disease, arthritic pain in joint above or below, among others. Workup will include tib-fib x-ray and ultrasound of the right lower extremity. P.o. NSAID and follow-up with orthopedics if workup in the ED is negative. Vital signs are normal. Patient is not in any distress. Disposition pending workup and patient course with probable discharge.. 08:39 ED course: Tib-fib x-ray negative for any acute findings and ultrasound is negative for sp3 blood clot. We will safely discharge patient home on oral NSAID and PCP follow-up.. Administered Medications: 07:36 Drug: Ibuprofen PO 800 mg PO once Route: PO; aa5 08:53 Follow up: Response: No adverse reaction aa5 Disposition Summary: 06/20/23 08:43 Discharge Ordered Notes: Location: Home sp3 Condition: Stable sp3 Diagnosis - Right calf pain sp3 Followup: sp3 - With: Private Physician - When: Upon discharge from the Emergency Department - Reason: Continuance of care Discharge Instructions: - Discharge Summary Sheet sp3 - Muscle Pain, Adult sp3 Forms: - Medication Reconciliation Form sp3 - Antibiotic Education sp3 - Prescription Opioid Use sp3 - Patient Portal Instructions sp3 - Leadership Thank You Letter sp3 Prescriptions: - Diclofenac Sodium 75 mg Oral Tablet Sustained Release - take 1 tablet ORAL route 2 times per day; 30 tablet; Refills: 0, Product sp3 Selection Permitted Signatures: Precious Stahl RN RN aa5 Brisa Candelaria RN RN Daisy Sewell MD MD sp3
--- NOTE | 2023-06-20 11:36 | ER ---
Nurse's Notes [facility] Name: Hussain Zee Age: 37 yrs Sex: Male : 1985 Arrival Date: 06/20/2023 Time: 07:01 Bed 6 Private MD: Diagnosis: Right calf pain Presentation: 06/19 07:09 Chief complaint: Right leg pain x 2 days. Coronavirus screen: At this time, the client hb does not indicate any symptoms associated with coronavirus-19. Ebola Screen: No symptoms or risks identified at this time. Initial Sepsis Screen: Does the patient meet any 2 criteria? No. Patient's initial sepsis screen is negative. Does the patient have a suspected source of infection? No. Patient's initial sepsis screen is negative. Risk Assessment: Do you want to hurt yourself or someone else? Patient reports no desire to harm self or others. Onset of symptoms was June 19, 2023. 07:09 Method Of Arrival: Ambulatory hb 07:09 Acuity: ESTEBAN 4 hb Triage Assessment: 07:23 General: Appears in no apparent distress. Behavior is calm, cooperative. Pain: Pain hb currently is 10 out of 10 on a pain scale. Neuro: Level of Consciousness is awake, alert, obeys commands, Oriented to person, place, time, situation. Cardiovascular: Patient's skin is warm and dry. Respiratory: Respiratory effort is even, unlabored, Respiratory pattern is regular, symmetrical. Musculoskeletal: Reports right leg pain. Historical: - Allergies: 07:24 No Known Allergies; hb - Home Meds: 07:23 gabapentin oral [Active]; hb - PMHx: 07:23 Anxiety; Bipolar disorder; depressive disorder; HERNIATED DISC C5-C6; shoulder problem; hb - PSHx: 07:23 R Leg; hb - Immunization history:: Adult Immunizations up to date. - Infectious Disease History:: Denies. - Social history:: Smoking status: Patient reports the use of cigarette tobacco products, smokes one pack cigarettes per day. Screenin:28 Abuse screen: Denies threats or abuse. Nutritional screening: No deficits noted. ap3 Tuberculosis screening: No symptoms or risk factors identified. 08:58 [facility] ED Fall Risk Assessment (Adult) History of falling in the last 3 months, ap3 including since admission No falls in past 3 months (0 pts) Confusion or Disorientation No (0 pts) Intoxicated or Sedated No (0 pts) Impaired Gait Yes (1 pt) Mobility Assist Device Used Yes (1 pt) Altered Elimination No (0 pt) Score/Fall Risk Level 0 - 2 = Low Risk Oriented to surroundings, Maintained a safe environment, Educated pt \T\ family on fall prevention, incl call for assistance when getting out of bed, Assessed \T\ reinforced patient's understanding of fall precautions, Provided non-skid footwear, Hourly rounding (assess needs \T\ fall precautionary measures) done, Used ambulatory aids as needed (educated on \T\ assisted with), Used gait belt as appropriate. Assessment: 07:27 General: Appears in no apparent distress. Behavior is calm, cooperative, appropriate ap3 for age. Pain: Complains of pain in right leg. Neuro: Level of Consciousness is awake, alert, obeys commands, Oriented to person, place, time, situation. Cardiovascular: Patient's skin is warm and dry. Respiratory: Airway is patent Respiratory effort is even, unlabored, Respiratory pattern is regular, symmetrical. 07:36 Reassessment: US at bedside . aa5 Vital Signs: 07:09 BP 134 / 84; Pulse 84; Resp 16; Temp 97.9(TE); Pulse Ox 99% on R/A; Weight 81.65 kg; hb Height 5 ft. 10 in. ; Pain 10/10; 08:56 Resp 16; Temp 97.8; Pulse Ox 98% ; ap3 07:09 Body Mass Index 25.83 (81.65 kg, 177.8 cm) hb 07:09 Pain Scale: Adult hb ED Course: 07:01 Patient arrived in ED. rg4 07:04 Daisy Sewell MD is Attending Physician. sp3 07:23 Triage completed. hb 07:23 Arm band placed on. hb 07:29 Patient has correct armband on for positive identification. Placed in gown. Bed in low ap3 position. Call light in reach. Side rails up X 1. Pulse ox on. NIBP on. Door closed. Noise minimized. Warm blanket given. 08:57 No provider procedures requiring assistance completed. Patient did not have IV access ap3 during this emergency room visit. 08:58 Provided Education on: discharge intructions. ap3 Administered Medications: 07:36 Drug: Ibuprofen PO 800 mg PO once Route: PO; aa5 08:53 Follow up: Response: No adverse reaction aa5 Medication: 08:58 VIS not applicable for this client. ap3 Outcome: 08:43 Discharge ordered by . sp3 08:57 Discharged to home ambulatory, ap3 08:57 Condition: good 08:57 Discharge instructions given to patient, Instructed on discharge instructions, follow up and referral plans. medication usage, Demonstrated understanding of instructions, follow-up care, medications, Prescriptions given X 1, 08:59 Patient left the ED. ap3 Signatures: Precious Stahl, RN RN aa5 Brisa Candelaria RN RN Sandi Cortez rg4 Tiffany Couch RN RN ap3 Daisy Sewell MD MD sp3 Corrections: (The following items were deleted from the chart) 08:53 07:11 Precious Stahl, RN is Primary Nurse. aa5 aa5
--- NOTE | 2023-06-20 14:27 | RAD REPORT ---
EXAM DESCRIPTION: RAD - Tib Fib Right - 06/20/2023 2:15 pm CLINICAL HISTORY: RT TIB FIB PAIN COMPARISON: No comparisons FINDINGS/IMPRESSION: No fracture of the tibia or fibula identified. Distal fibular plate and screw w hich is intact and the fracture is healed. Syndesmosis repair also noted.
--- NOTE | 2023-06-20 14:46 | RAD REPORT ---
EXAM DESCRIPTION: US - Extremity Venous Uni Ltd - 06/20/2023 2:16 pm CLINICAL HISTORY: Pain COMPARISON: None. TECHNIQUE: Real-time sonographic evaluation of the right lower extremity deep venous system was perf ormed. FINDINGS: Normal compressibility, flow augmentation, phasic flow and spontaneous flow is identified in the right lower extremity deep venous system. No intraluminal filling defects seen. IMPRESSION: No DVT in the right lower extremity.
[2023-06-21 14:39] VITALS: BP 134/84; TEMP 97.8; O2SAT 98
== END 2023-06-20 08:59 | disposition home or self-care (01) ==
LOC: ER 07:01
DX: M79.661 Pain in right lower leg (principal); S82.831S Other fracture of upper and lower end of right fibula, sequela; F17.210 Nicotine dependence, cigarettes, uncomplicated
CPT/HCPCS: 93971; 99283

== ENCOUNTER 2024-03-26 07:48 | Emergency (ER) | payer OTHER ==
--- NOTE | 2024-03-26 08:31 | ER ---
Nurse's Notes [facility] Name: Hussain Zee Age: 38 yrs Sex: Male : 1985 Arrival Date: 03/26/2024 Time: 07:48 Bed IW1 Private MD: Diagnosis: Ulnar Neuropathy Presentation: 03/26 08:14 Chief complaint: Patient states: Bilateral hand pain, numbness for months, worse in the jl7 morning. Coronavirus screen: At this time, the client does not indicate any symptoms associated with coronavirus-19. Ebola Screen: No symptoms or risks identified at this time. Initial Sepsis Screen: Does the patient meet any 2 criteria? No. Patient's initial sepsis screen is negative. Does the patient have a suspected source of infection? No. Patient's initial sepsis screen is negative. Risk Assessment: Do you want to hurt yourself or someone else? Patient reports no desire to harm self or others. Onset of symptoms is unknown. 08:14 Method Of Arrival: Ambulatory jl7 08:14 Acuity: ESTEBAN 4 jl7 Triage Assessment: 08:15 General: Appears in no apparent distress. uncomfortable, Behavior is calm, cooperative, jl7 appropriate for age. Pain: Complains of pain in right hand and left hand Pain currently is 8 out of 10 on a pain scale. Neuro: Level of Consciousness is awake, alert, obeys commands. Cardiovascular: Patient's skin is warm and dry. Respiratory: Airway is patent Respiratory effort is even, unlabored, Respiratory pattern is regular, symmetrical. Derm: Skin is pink, warm \T\ dry. Historical: - Allergies: 08:15 No Known Allergies; jl7 - PMHx: 08:15 Anxiety; Bipolar disorder; depressive disorder; HERNIATED DISC C5-C6; shoulder problem; jl7 - PSHx: 08:15 r leg; jl7 - Immunization history:: Adult Immunizations unknown. - Infectious Disease History:: Denies. - Social history:: Smoking status: Patient reports the use of cigarette tobacco products, smokes one pack cigarettes per day. Patient uses street drugs, marijuana. Vital Signs: 08:14 BP 137 / 102; Pulse 89; Resp 17; Temp 97.3; Pulse Ox 100% ; Weight 83.01 kg; Height 5 jl7 ft. 10 in. ; Pain 8/10; 08:14 Body Mass Index 26.26 (83.01 kg, 177.8 cm) jl7 08:14 Pain Scale: Adult jl7 ED Course: 07:52 Patient arrived in ED. im 08:05 Saul Roper MD is Attending Physician. ec2 08:15 Triage completed. jl7 08:15 Arm band placed on right wrist. Patient placed in waiting room, Patient notified of jl7 wait time. 08:55 Sigifredo Hoover RN is Primary Nurse. jl7 08:56 No provider procedures requiring assistance completed. Patient did not have IV access jl7 during this emergency room visit. Administered Medications: 08:55 Drug: Ketorolac IM 30 mg IM once Route: IM; Site: right deltoid; jl7 08:55 Follow up: Response: Medication administered at discharge. jl7 08:55 Drug: Gabapentin PO 300 mg PO once Route: PO; jl7 08:55 Follow up: Response: Medication administered at discharge. jl7 08:55 Drug: predniSONE PO 20 mg PO once Route: PO; jl7 08:55 Follow up: Response: Medication administered at discharge. jl7 Outcome: 08:31 Discharge ordered by . ec2 08:56 Discharged to home ambulatory, jl7 08:56 Condition: stable 08:56 Discharge instructions given to patient, Instructed on discharge instructions, follow up and referral plans. medication usage, Demonstrated understanding of instructions, follow-up care, medications, Prescriptions given X 2, 08:56 Patient left the ED. jl7 Signatures: Sigifredo Hoover RN RN jl7 Mary Christine im Saul Roper MD MD ec2
--- NOTE | 2024-03-26 08:31 | EDPHYS ---
Physician Documentation [facility] Name: Hussain Zee Age: 38 yrs Sex: Male : 1985 Arrival Date: 03/26/2024 Time: 07:48 Bed IW1 Private MD: ED Physician Saul Roper HPI: 03/26 08:32 This 38 yrs old Male presents to ER via Ambulatory with complaints of Hand ec2 Pain - both, Hand Swelling - both. 08:32 Patient arrives today for evaluation of bilateral hand pain. Reports paresthesias in ec2 the third fourth and fifth digits of the bilateral hands. No injuries or trauma,. Historical: - Allergies: 08:15 No Known Allergies; jl7 - PMHx: 08:15 Anxiety; Bipolar disorder; depressive disorder; HERNIATED DISC C5-C6; shoulder problem; jl7 - PSHx: 08:15 r leg; jl7 - Immunization history:: Adult Immunizations unknown. - Infectious Disease History:: Denies. - Social history:: Smoking status: Patient reports the use of cigarette tobacco products, smokes one pack cigarettes per day. Patient uses street drugs, marijuana. ROS: 08:33 Constitutional: as per hpi ec2 Exam: 08:33 Constitutional: GEN: NAD Head: atraumatic Eyes: EOMI Ears: External ears are ec2 normal. CV: regular rate LUNGS: no respiratory distress ABD: non-distended SKIN: no evidence of rashes MSK: no evidence of trauma, intact strength in the bilateral hands. Subjective numbness in the third fourth and fifth digits bilaterally. Vital Signs: 08:14 BP 137 / 102; Pulse 89; Resp 17; Temp 97.3; Pulse Ox 100% ; Weight 83.01 kg; Height 5 jl7 ft. 10 in. ; Pain 8/10; 08:14 Body Mass Index 26.26 (83.01 kg, 177.8 cm) jl7 08:14 Pain Scale: Adult jl7 MDM: 08:16 Medical Screening Exam initiated ec2 08:33 Data reviewed: vital signs, nurses notes. ED course: patient arrives today d/t concern ec2 for bilateral hand pain in the ulnar distribution. Will start the patient on steroids and gabapentin discharge home. Turn precautions given. . Administered Medications: 08:55 Drug: Ketorolac IM 30 mg IM once Route: IM; Site: right deltoid; jl7 08:55 Follow up: Response: Medication administered at discharge. jl7 08:55 Drug: Gabapentin PO 300 mg PO once Route: PO; jl7 08:55 Follow up: Response: Medication administered at discharge. jl7 08:55 Drug: predniSONE PO 20 mg PO once Route: PO; jl7 08:55 Follow up: Response: Medication administered at discharge. jl7 Disposition Summary: 03/26/24 08:31 Discharge Ordered Notes: Location: Home ec2 Condition: Stable ec2 Diagnosis - Ulnar Neuropathy ec2 Followup: ec2 - With: Private Physician - When: - Reason: Re-evaluation by your physician Discharge Instructions: - Discharge Summary Sheet ec2 - Ulnar Nerve Contusion Rehab-[facility] ec2 Forms: - Medication Reconciliation Form ec2 - Antibiotic Education ec2 - Prescription Opioid Use ec2 - Patient Portal Instructions ec2 - Leadership Thank You Letter ec2 Prescriptions: - gabapentin 800 mg Oral tablet - take 1 tablet ORAL route 3 times per day; 21 tablet; Refills: 0, Product ec2 Selection Permitted - Prednisone 20 mg Oral Tablet - take 1 tablet ORAL route once daily for 5 days; 5 tablet; Refills: 0, Product ec2 Selection Permitted Signatures: Sigifredo Hoover RN RN jl7 Saul Roper MD MD ec2 Corrections: (The following items were deleted from the chart) 08:37 08:33 ED course: patient arrives today d/t concern for . ec2 ec2
[2024-03-26] MEDS ORDERED: predniSONE 20 MG TAB ONE (08:47)
[2024-03-26] MEDS ORDERED: GABAPENTIN 300 MG CAP ONE (08:47)
[2024-03-26] MEDS ORDERED: KETOROLAC 30 MG/ML INJ ONE (08:48)
[2024-03-26 09:00] VITALS: BP 137/102; TEMP 97.3; O2SAT 100
== END 2024-03-26 08:56 | disposition home or self-care (01) ==
LOC: ER 07:48
DX: G56.23 Lesion of ulnar nerve, bilateral upper limbs (principal); F17.210 Nicotine dependence, cigarettes, uncomplicated
CPT/HCPCS: 96372; 99284; J7512